=== PATIENT | female | born 1995 | race Caucasian/White ===

== ENCOUNTER 2021-09-08 15:10 | Outpatient (REF) | payer OTHER, SELFPAY ==
[2021-09-08 16:24] LABS: MANUAL DIFF FLAG NO
[2021-09-08 16:26] LABS: Basophils Absolute Auto 0.1 X10*3/uL (0.0-0.2); Basophils Percent Auto 0.5 % (0-2); Eosinophils Absolute Auto 0.1 X10*3/uL (0.0-0.4); Eosinophils Percent Auto 0.5 % (0-4); Hematocrit 41.6 % (37.0-47.0); Hemoglobin 13.7 g/dl (12.0-16.0); Imm Gran Abs Auto 0.04 X10*3/uL (0.00-0.03); Imm Gran Pct Auto 0.4 % (0.0-0.4); Lymphocytes Absolute Auto 2.3 X10*3/uL (1.2-4.9); Lymphocytes Percent Auto 22.4 % (20-40); Mean Corpuscular HGB Conc 32.9 g/dl (31.0-35.0); Mean Corpuscular Hemoglobin 30.1 pg (27.0-33.0); Mean Corpuscular Volume 91.4 fL (80.0-98.0); Mean Platelet Volume 11.2 fL (9.4-12.3); Monocytes Absolute Auto 0.6 X10*3/uL (0.1-1.2); Monocytes Percent Auto 6.3 % (2-11); Neutrophils Absolute Auto 7.1 x10*3/uL (2.0-8.3); Neutrophils Percent Auto 69.9 % (45-73); Platelet Count 276 X10*3/uL (160-400); Red Blood Count 4.55 X10*6/uL (4.20-5.50); Red Cell Distribution Width 12.8 % (11.0-16.0); White Blood Count 10.1 X10*3/uL (4.8-10.8)
[2021-09-08 16:51] LABS: Alanine Aminotransferase 13 U/L (0-31); Anion Gap 15 (12-20); Aspartate Amino Transferase 16 U/L (5-31); Blood Urea Nitrogen 9 mg/dL (9-16); Carbon Dioxide 23 mmol/L (22-29); Chloride 106 mmol/L (96-108); Cholesterol 269 mg/dL; Estimated Glomerular Filt Rate > 60; Glucose Fasting 81 mg/dL (60-99); HDL Cholesterol 52 mg/dL; LDL Cholesterol Calculated 197 mg/dl; Potassium 3.8 mmol/L (3.3-5.1); Sodium 140 mmol/L (135-145); Triglycerides 104 mg/dL
[2021-09-08 17:14] LABS: TSH reflex Free T4 1.18 uIU/mL (0.32-4.0); Vitamin D 25-OH Total 11.8 ng/mL (>30)
== END 2021-09-08 15:11 | disposition home or self-care (01) ==
LOC: HO.HMGCLDS 15:10
PROVIDERS: PCP Internal Medicine; Visit Provider Internal Medicine
DX: Z00.01 Encounter for general adult medical examination with abnormal findings (principal); I10 Essential (primary) hypertension; R42 Dizziness and giddiness; L71.9 Rosacea, unspecified
CPT/HCPCS: 36415; 80048; 80061; 82306; 84443; 84450; 84460; 85025

== ENCOUNTER 2021-09-29 12:04 | Outpatient (REF) | payer OTHER, SELFPAY ==
[2021-09-29 16:09] LABS: COVID-19 Test Negative (Negative); IDNOW Serial# 16C4AD1C
== END 2021-09-29 12:05 | disposition home or self-care (01) ==
LOC: HO.LAB 12:04
PROVIDERS: Visit Provider Internal Medicine
DX: Z20.822 Contact with and (suspected) exposure to COVID-19 (principal)
CPT/HCPCS: 36415; 87635; C9803

== ENCOUNTER 2021-10-20 08:19 | Outpatient (REF) | payer OTHER, SELFPAY ==
[2021-10-20 09:01] LABS: COVID-19 Test Negative (Negative); IDNOW Serial# 16C4AD1C
== END 2021-10-20 08:20 | disposition home or self-care (01) ==
LOC: HO.LAB 08:19
PROVIDERS: Visit Provider Internal Medicine
DX: Z20.822 Contact with and (suspected) exposure to COVID-19 (principal)
CPT/HCPCS: 87635; C9803

== ENCOUNTER 2022-05-19 14:18 | Outpatient (REF) | payer OTHER, SELFPAY ==
--- NOTE | ~2022-05-19 | MM_ITS ---
EXAMINATION: MM DIAGNOSTIC DIGITAL BREAST TOMOSYNTHESIS, BILATERAL US DIAGNOSTIC ULTRASOUND BREAST, RIGHT CLINICAL INFORMATION: 27-year-old with palpable fullness for approximately 6 months right breast. No discharge. Family history premenopausal breast cancer, mother at age 45. No BRCA testing. The lifetime risk of breast cancer based on the Tyrer-Cuzick Model is 27%. COMPARISON: None (current study represents initial baseline exam). TECHNIQUE: Digital breast tomosynthesis is performed in both the craniocaudal and mediolateral oblique views along with computer-aided detection (CAD). Synthesized 2D images are generated from the tomosynthesis. Additional right MLO view is provided. Ultrasound right breast is targeted to the areas of clinical concern upper outer breast. Grayscale imaging and color Doppler are performed without and with harmonics. FINDINGS: The breasts are heterogeneously dense, which may obscure small masses (ACR BI-RADS breast composition Category c). Breast tissue composition borders on average fibroglandular. There is no mass or architectural abnormality. No abnormal calcifications. The axilla are unremarkable. The skin contours are smooth. There is mild asymmetry of the breast, right slightly larger. Ultrasound right breast demonstrates no cystic or solid mass, architectural abnormality, or focal duct ectasia. No skin thickening or edema tracking in soft tissue planes. Results are discussed with the patient at time of visit. Management options for the palpable concern and availability of genetic testing were also discussed. MM/MM tomosynthesis diagnostic BI IMPRESSION: -No mammographic evidence of malignancy. -Unremarkable right breast ultrasound. ASSESSMENT: BI-RADS 2: Benign RECOMMENDATION: 1. Patient should be managed based on the clinical impression. If clinically indicated, further evaluation may be considered with surgical consult and/or genetic testing. Decision to proceed with biopsy should be based on clinical grounds and degree of clinical concern. 2. Otherwise, routine annual screening mammography, beginning age 35, or earlier as clinical risk factors warrant. This patient's information was entered into a reminder system with a target due date for their next mammogram.
== END 2022-05-19 14:19 | disposition home or self-care (01) ==
LOC: HO.MAMMO 14:18
PROVIDERS: Visit Provider Family Medicine
DX: N60.01 Solitary cyst of right breast (principal); Z80.3 Family history of malignant neoplasm of breast
CPT/HCPCS: 76642; 77062; 77066

== ENCOUNTER 2024-01-19 13:20 | Outpatient (AMB) | payer OTHER, SELFPAY ==
--- NOTE | 2024-01-19 13:27 | A.OFFPC_ITS ---
Vital Signs 01/19/24 13:28 Height 5 ft 4 in Weight 123 lb BMI 21.1 BP 118/66 Blood Pressure Location Lt brachial Position Sitting Pulse 67 Pulse Source Pulse Oximeter Pulse Oximetry (%) 99 Oxygen Delivery Method Room Air Intake Visit Reasons: RIGO from [place] Intake Note: Patient is transferring care from Dr. Gonzalez. Allergies amoxicillin [AMOXICILLIN] Allergy (Mild, Verified 01/19/24 13:56) RASH, breaks out was told whe she was a baby Medication List - Last Reconciled 01/19/24 by Tari Ervin, [facility]- cholecalciferol (vitamin D3) 1,250 mcg PO QWEEK 90 days Tobacco use date assessed: 01/19/24 Dental Screening Dental Screen Date: 01/19/24 Did you have a dental visit in the last 12 months?: Yes Did you have a dental problem in the last 6 months where you did not have access to dental care?: No Was dental information given to patient?: Patient has dentist HPI HPI Comments History of Present Illness Details 29-year-old female with vitamin-D defici ency hyperlipidemia, rosacea, family history of breast cancer, anemia due to dysfunctional uterine bleeding requiring blood transfusions, orthostatic hypotension Health Maintenance: Pap Mammo - Dx mammo and 2021 WNL Specialists: Here today for hospital discharge follow up. Reports that she had a syncopal episode last week. Reports that she was out to dinner with her mom at [facility]. She stood at the table to ask her mom where the bathroom was and the next thing that she knew she was lying on the floor. She states that she fell and hit her face on the floor. She reports being unconscious for several minutes. When she awoke she was very sweaty. States her mom thinks that maybe she had seizure-like activity. No urinary incontinence. Her mom was able to transport her to [facility] Emergency room where she was evaluated. Unfortunately this paperwork is not available to me today. Reports that she had 2 EKGs, labs, and CT of head and neck that were all within normal limits. I have asked my staff to obtain these records. She states that she has had a history of syncope and collapse. The last time about 4 years ago. Reports that she was symptomatic prior to this episode 4 years ago. She fell really warm and flushed, felt her heart rate rise, and knew that she was going to faint. While she attempted to sit down she syncopized. She did end up with a laceration to her chin that needed repair. States that she has only been to the emergency room and has never been seen or followed by a specialist for this. But does have a diagnosis of vasovagal syncope. Has tried wearing Gerber stockings in the past but feels like she has not gotten any that have been the right compression. Eats a high sodium diet. Has not been worked up procedures as far as she knows. 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 1. Little interest or pleasure in doing things: not at all 2. Feeling down, depressed, or hopeless: not at all 3. Trouble falling or staying asleep, or sleeping too much: not at all 4. Feeling tired or having little energy: not at all 5. Poor appetite or overeating: not at all 6. Feeling bad about yourself - or that you are a failure or have let yourself or your family down: not at all 7. Trouble concentrating on things, such as reading the newspaper or watching television: not at all 8. Moving or speaking so slowly that other people could have noticed. Or the opposite - being so fidgety or restless that you have been moving around a lot more than usual: not at all 9. Thoughts that you would be better off or of hurting yourself in some way: not at all Total score: 0 Depression Screening Interpretation: Negative Depression Screening Done: Yes 04052 - PHQ-9 Billing: Yes Source: Developed by Drs. Micah Pepe, Bert Taylor and colleagues, with an educational parth from [employer]. Thrive Questionnaire Date Thrive assessed: 01/19/24 I am a: Patient What is your living situation today?: I have a steady place to live Within the past 12 months, did the food you bought not last and you didn't have the money to get more?: Never true Within the past 12 months, did you worry whether your food would run out before you got money to buy more?: Never true Do you have trouble paying for medicines?: No Do you have trouble getting transportation to medical appointments?: No Do you have trouble paying your heating and electricity bill?: No Do you have trouble taking care of your child, family member or friend?: No Do you have trouble with day-to-day activities such as bathing, preparing meals, shopping, managing finances, etc.?: No Are you currently unemployed and looking for a job?: No Are you interested in more education?: Yes THRIVE Score: 0 AUDIT C Alcohol Use Questionnaire (AUDIT-C) 1. How often do you have a drink containing alcohol?: Monthly or less 2. How many drinks containing alcohol do you have on a typical day when you are drinking?: 1 or 2 3. How often do you have six or more drinks on one occasion?: Never Total Score: 1 Score Reviewed/Action Taken: Yes VIDAL-7 AMB Questionnaire VIDAL-7 Date VIDAL - 7 assessed: 01/19/24 Feeling nervous, anxious, or on edge: 0 = Not at all Not being able to stop or control worryin = Several days Worrying too much about different things: 0 = Not at all Trouble relaxin = Several days Being so restless that it is hard to sit still: 0 = Not at all Becoming easily annoyed or irritable: 3 = Nearly every day Feeling afraid as if something awful might happen: 1 = Several days Total VIDAL-7 score (0-4 normal; 5-9 mild; 10-14 moderate; 15-21 severe): 6 Source: Developed by Shannan Taylor Kurt Kroenke and colleagues, with an educational parth from [employer]. VIDAL-7 Assessment Billing VIDAL-7 Assessment Tool: VIDAL-7 Assessment 98432 Review of Systems Const All systems reviewed & are unremarkable except as noted in HPI and below Physical exam (Primary Care) Vital Signs: Last Vital Signs Pulse 67 01/19/24 13:28 BP 118/66 01/19/24 13:28 Pulse Ox 99 01/19/24 13:28 Oxygen Delivery Method Room Air 01/19/24 13:28 BMI result Body Mass Index 21.1 Tobacco/Smoking Status: Tobacco use Status Tobacco use date assessed 01/19/24 01/19/24 13:39 Patient Tobacco Use Status Never used Tobacco 01/19/24 13:39 e-Cigarette/Vaping Use Never Used 01/19/24 13:39 PHQ-9: PHQ-9 Score PHQ-9: Total score 0 01/19/24 13:39 Depression Screening Interpretation: Negative Thrive Assessment: Date of Thrive Assessment Date Thrive assessed 01/19/24 01/19/24 13:39 Const Other: Awake alert oriented Resolving ecchymosis to the right side of her face, laceration below nose in the right side healing without signs of infection PERRLA, EOMI Neck full range of motion Regular rate and rhythm, 3/6 systolic murmur Lung sounds clear to auscultation bilat No focal neuro deficits noted on exam Assessment and Plan Assessment & Plan (1) Hospital discharge follow-up: Code(s): Z09 - Encounter for follow-up examination after completed treatment for conditions other than malignant neoplasm Plan: Unfortunately do not have any of the [facility] workup present at the visit today. Patient reports everything was within normal limits. I have asked my staff to pull these records for me to review prior to the next visit which will be in 1 week. (2) Syncope and collapse: Comment: Reports an ongoing history dating back to at least 4 years. Reports all of her workups have been done at [facility]. I have asked my staff to pull all reports and diagnostics. Unclear of what workup she has had to date. My concern does include a seizure disorder. I will see her back next week to review with her what I find in her [facility] medical records and, with the plan of care. In the meantime I advised her to change positions slowly, wear tight compression on her lower extremities, continue to eat a high sodium diet, continue to hydrate liberally. Caution driving. Code(s): R55 - Syncope and collapse Plan This note is constructed using voice recognition software. While every effort has been made to ensure accuracy in wax ball knock out worker, still errors may have been included Sometimes, these errors may affect the content or meaning of the given sentence . Total time spent caring for the patient today was 60 minutes. This includes time spent before the visit reviewing the chart, time spent during the visit, and time spent after the visit on documentation Coding Level of Care Code Est Pt Level 5 (82898) Diagnoses Hospital discharge follow-up Z09 Syncope and collapse R55 Additional Codes VIDAL-7 Assessment Billing - VIDAL-7 Assessment Tool: VIDAL-7 Assessment 34946 ([id number])
[2024-01-19 13:28] VITALS: BP 118/66; PULSE 67; O2SAT 99; BMI 21.1
== END 2024-01-19 14:39 | disposition home or self-care (01) ==
PROVIDERS: PCP Internal Medicine; Visit Provider Nurse Practitioner Family
DX: Z09 Encounter for follow-up examination after completed treatment for conditions other than malignant neoplasm (principal); R55 Syncope and collapse
CPT/HCPCS: 99215; 99417

== ENCOUNTER 2024-01-24 11:55 | Outpatient (AMB) | payer OTHER, SELFPAY ==
--- NOTE | 2024-01-24 11:59 | MHC.PC.OV ---
Vital Signs 01/24/24 12:01 Height 5 ft 4 in Weight 126 lb BMI 21.6 BP 131/59 L Blood Pressure Location Lt brachial Position Sitting Pulse 110 H Pulse Source Pulse Oximeter Pulse Oximetry (%) 96 Oxygen Delivery Method Room Air Intake Visit Reasons: FU syncope/FMLA Intake Note: Patient in office for f/u syncope and to have FMLA paperwork filled out. Pt. reports no new concerns. 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 Reclamation Required: No Accompanied by: Self / Same As Patient Allergies amoxicillin [AMOXICILLIN] Allergy (Mild, Verified 01/24/24 12:02) RASH, breaks out was told whe she was a baby Tobacco use date assessed: 01/24/24 Dental Screening Dental Screen Date: 01/19/24 HPI HPI Comments History of Present Illness Details 29-year-old female with vitamin-D deficiency hyperlipidemia, rosacea, family history of breast cancer, anemia due to dysfunctional uterine bleeding requiring blood transfusions Surgical hx: October of 2014 suction D&C for dyssynchronous endometrium causing hemorrhage Health Maintenance: Pap Pap 01/29/2019 ascus negative HPV Mammo - Dx mammo and US 2021 WNL 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 If clinically indicated consider AL. Normal left ventricle. Ejection fraction 60-65%, trivial aortic valve regurg, trace mitral valve regurg, trace pulmonic valve regurg, trace tricuspid regurg Previous Echo 01/2015, done at [facility], [facility]. Admitted in 2014 to PICU for syncope. EKG during this admission shows signs of ischemia. EKG 01/18/2020 at [facility] was concerning for ischemic changes however unchanged from the EKG in 2014. Repeat EKG showed sinus rhythm with an incomplete right bundle. Cardiology consulted. Advised for the patient to be admitted. Referred to EP lab TSH of 5.94 with a T4 of 0.99 01/18/2020 along with a D-dimer of 0.3 Here today to follow up on syncope and collapse. Since last office visit I was able to review the notes as listed above. She has not had any further syncopal episodes. She tells me that she was not able to have the tilt-table test in 2019 as ordered. Unsure exactly of the cause but all but she was related to the pandemic. She does state that she got her period 2 days after the most recent syncopal event. She can recall that she got her period about 2 days after the last syncopal event in 2019 as well. She wonders if there is any correlation. Is having headaches and post concussive sx; along w/ neck pain. Tx with APAP. Feels like she is managing. She does need a reasonable accommodation letter for her employer to state that she has to wear stretch pants to work which is required to prevent orthostatic syncope. She also needs [place] paperwork completed. We have completed this at the time of the visit in the original paperwork was returned to her. The leave is for an intermittent leave starting 01/15/2024 extending through 07/16/2024. Intermittent abscesses include 2 episodes per week each episode lasting 1 day. 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 Micah Pepe, Shannan Jade, Bert Bahena and colleagues, with an educational parth from [employer]. Review of Systems Const All systems reviewed & are unremarkable except as noted in HPI and below Physical exam (Primary Care) Vital Signs: Last Vital Signs Pulse 110 H 01/24/24 12:01 BP 131/59 L 01/24/24 12:01 Pulse Ox 96 01/24/24 12:01 BMI result Body Mass Index 21.6 Tobacco/Smoking Status: Tobacco use Status Tobacco use date assessed 01/19/24 01/24/24 12:03 Patient Tobacco Use Status Never used Tobacco 01/24/24 12:03 e-Cigarette/Vaping Use Never Used 01/24/24 12:03 Thrive Assessment: Date of Thrive Assessment Date Thrive assessed 01/19/24 01/24/24 12:03 Const Other: Awake alert oriented Resolving ecchymosis to the right side of her face, PERRLA, EOMI Neck full range of motion Regular rate and rhythm, 3/6 systolic murmur Lung sounds clear to auscultation bilat No focal neuro deficits noted on exam Assessment and Plan Assessment & Plan (1) Syncope and collapse: Comment: Echocardiogram 07/14/2018 small nonspecific echodensity in the right coronary cusp of the aortic valve, uncertain significance. If clinically indicated consider AL. Normal left ventricle. Ejection fraction 60-65%, trivial aortic valve regurg, trace mitral valve regurg, trace pulmonic valve regurg, trace tricuspid regurg Previous Echo 01/2015, done at [facility], [facility]. Admitted in 2014 to PICU for syncope. EKG during this admission shows signs of ischemia. EKG 01/18/2020 at [facility] was concerning for ischemic changes however unchanged from the EKG in 2014. Repeat EKG showed sinus rhythm with an incomplete right bundle. Cardiology consulted. Advised for the patient to be admitted. Referred to EP lab (did not happen d/t pandemic). Plan: check EEG and Tilt table test, wear tight compression pants (note given for work), cont slow position changes. No AL at this time, will entertain after these 2 tests are back. Incidental mild elevation in D dimer in the past, will check again today. Code(s): R55 - Syncope and collapse (2) Vitamin D deficiency: Comment: check labs today Code(s): E55.9 - Vitamin D deficiency, unspecified (3) Elevated TSH: Comment: incidental finding on one of her previous work ups. I will repeat labs + TPO today. Code(s): R79.89 - Other specified abnormal findings of blood chemistry (4) Post concussion syndrome: Comment: supportive care; education provided. Code(s): F07.81 - Postconcussional syndrome Plan This note is constructed using voice recognition software. While every effort has been made to ensure accuracy in inner diameter grinder tool, still errors may have been included Sometimes, these errors may affect the content or meaning of the given sentence . Total time spent caring for the patient today was 60 minutes. This includes time spent before the visit reviewing the chart, time spent during the visit, and time spent after the visit on documentation Orders: Orders D Dimer High Sensitivity Today E55.9 - Vitamin D deficiency, unspecified, R55 - Syncope and collapse, R79.89 - Other specified abnormal findings of blood chemistry Vitamin D 1,25 dihydroxy Today E55.9 - Vitamin D deficiency, unspecified EEG electroencephalogram Today R55 - Syncope and collapse ECG Tilt Table Test Today R55 - Syncope and collapse TSH reflex Free T4 Today E55.9 - Vitamin D deficiency, unspecified, R55 - Syncope and collapse, R79.89 - Other specified abnormal findings of blood chemistry Thyroid Peroxidase Antibodies Today E55.9 - Vitamin D deficiency, unspecified, R55 - Syncope and collapse, R79.89 - Other specified abnormal findings of blood chemistry Patient Instructions: RTO IN 6 WEEKS TO F/U ON TILT TABLE, EEG, SYNCOPE AND COLLAPSE. SOONER PRN Coding Level of Care Code Est Pt Level 5 (40987) Diagnoses Syncope and collapse R55 Vitamin D deficiency E55.9 Elevated TSH R79.89 Post concussion syndrome F07.81
[2024-01-24 12:01] VITALS: BP 131/59; PULSE 110; O2SAT 96; BMI 21.6
== END 2024-01-24 12:44 | disposition home or self-care (01) ==
PROVIDERS: PCP Nurse Practitioner Family; Visit Provider Nurse Practitioner Family
DX: R55 Syncope and collapse (principal); E55.9 Vitamin D deficiency, unspecified; R79.89 Other specified abnormal findings of blood chemistry; F07.81 Postconcussional syndrome
CPT/HCPCS: 99215; 99417

== ENCOUNTER 2024-01-24 12:38 | Outpatient (REF) | payer OTHER, SELFPAY ==
[2024-01-24 15:22] LABS: D Dimer High Sensitivity < 150 NG/ML
[2024-01-24 16:39] LABS: TSH reflex Free T4 1.54 uIU/mL (0.32-4.0)
[2024-01-25 11:33] LABS: Thyroid Peroxidase Antibodies <1 IU/mL (<9)
[2024-01-28 13:38] LABS: VITAMIN D (1,25 OH) D3 38 pg/mL; Vit D (1,25-Dihydroxy) Total 38 pg/mL (18-72); Vitamin D (1,25 OH) D2 <8 pg/mL
== END 2024-01-24 12:39 | disposition home or self-care (01) ==
LOC: HO.WFDLDS 12:38
PROVIDERS: Visit Provider Nurse Practitioner Family
DX: R55 Syncope and collapse (principal); E55.9 Vitamin D deficiency, unspecified; R94.6 Abnormal results of thyroid function studies
CPT/HCPCS: 36415; 82652; 84443; 85379; 86376

== ENCOUNTER 2024-03-06 08:31 | Outpatient (AMB) | payer OTHER, SELFPAY ==
[2024-03-06 08:36] VITALS: BP 112/64; PULSE 78; RESP 13; TEMP 36.4; O2SAT 99; BMI 22.2
--- NOTE | 2024-03-06 08:36 | MHC.PC.OV ---
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 Operator Required: No Accompanied by: Self / Same As Patient Allergies amoxicillin [AMOXICILLIN] Allergy (Mild, Verified 03/06/24 08:53) RASH, breaks out was told whe she was a baby Medication List - Last Reconciled 03/06/24 by Tari Ervin, [facility]- cholecalciferol (vitamin D3) 1,250 mcg PO QWEEK 90 days Tobacco use date assessed: 01/24/24 Dental Screening Dental Screen Date: 01/19/24 HPI HPI Comments History of Present Illness Details 29-year-old female with vitamin-D deficiency hyperlipidemia, rosacea, family history of breast cancer, anemia due to dysfunctional uterine bleeding requiring blood transfusions Surgical hx: October of 2014 suction D&C for dyssynchronous endometrium causing hemorrhage Health Maintenance: Pap Pap 01/29/2019 ascus negative HPV Mammo - Dx mammo and US 2021 WNL 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 If clinically indicated consider AL. Normal left ventricle. Ejection fraction 60-65%, trivial aortic valve regurg, trace mitral valve regurg, trace pulmonic valve regurg, trace tricuspid regurg Previous Echo 01/2015, done at [facility], WNL. Admitted in 2014 to PICU for syncope. EKG during this admission shows signs of ischemia. EKG 01/18/2020 at [facility] was concerning for ischemic changes however unchanged from the EKG in 2014. Repeat EKG showed sinus rhythm with an incomplete right bundle. Cardiology consulted. Advised for the patient to be admitted. Referred to EP lab 01/2024 D Dimer negative, TSH WNL, TPO AB negative, Vit D WNL Here today to f/u on Syncope and collapse. Since last visit, did complete tilt table test at [facility], reports + sx after admin of nitro. I do not have these results, i have requested. Has been using gatorade and electrolyte solution, wearing compression leggings. Yesterday was first day she did not feel well. Menses are coming. Legs feel tight. admits anxiety around times of menses as this is when sx usually occur. 02/08/2024 Awake EEG WNL Left achilles is painful, thinks she overstretched this started this morning. Plan will be: Discussed echo results >> AL vs Echo VS Cards consults VS nothing -- plan will be to review health insurance benefits and discuss w/ family & get back to me on portal w/ decision. Use Na tabs over the counter 3L and 3g salt /day Start escitalopram Use NSAid and gentle exercises Keep diary and log of muscle aches and pains. See appearing in determine any correlation. [facility] Medical History Orthostatic hypotension Vasovagal syncope Vitamin D deficiency Familial hypercholesterolemia Rosacea Positional lightheadedness Surgical History No pertinent past surgical history Social History Household Members: Family Both parents involved: No Caregiver staying overnight: No Housing: House Are you a primary manager medicare marketing to a significant other at home: No Do you presently have visiting nurse or other home services: No 75 years or older and lives alone: No Alcohol intake: current Alcohol intake frequency: holidays/special occasions only Alcohol type: other Patient Tobacco Use Status: Never used Tobacco e-Cigarette/Vaping Use: Never Used service: No Current occupational status: employed 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 Micah Pepe, Shannan Jade, Bert Bahena and colleagues, with an educational parth from [employer]. Review of Systems Const All systems reviewed & are unremarkable except as noted in HPI and below Physical exam (Primary Care) Vital Signs: Last Vital Signs Temp 97.6 F 03/06/24 08:36 Pulse 78 03/06/24 08:36 Resp 13 03/06/24 08:36 BP 112/64 03/06/24 08:36 Pulse Ox 99 03/06/24 08:36 Oxygen Delivery Method Room Air 03/06/24 08:36 BMI result Body Mass Index 22.2 Tobacco/Smoking Status: Tobacco use Status Tobacco use date assessed 01/24/24 03/06/24 08:43 Patient Tobacco Use Status Never used Tobacco 03/06/24 08:43 e-Cigarette/Vaping Use Never Used 03/06/24 08:43 Thrive Assessment: Date of Thrive Assessment Date Thrive assessed 01/19/24 03/06/24 08:43 Const Other: Awake alert oriented PERRLA, EOMI Neck full range of motion Regular rate and rhythm, 3/6 systolic murmur Lung sounds clear to auscultation bilat No focal neuro deficits noted on exam No edema bilateral lower extremities, pain over left Achilles with range of motion passive and active in all direction and with palpation, no edema no ecchymosis no erythema. Mild antalgic gait favoring the left side Assessment and Plan Assessment & Plan (1) Syncope and collapse: Comment: Echocardiogram 07/14/2018 small nonspecific echodensity in the right coronary cusp of the aortic valve, uncertain significance. If clinically indicated consider AL. Normal left ventricle. Ejection fraction 60-65%, trivial aortic valve regurg, trace mitral valve regurg, trace pulmonic valve regurg, trace tricuspid regurg Previous Echo 01/2015, done at [facility], [facility]. Admitted in 2014 to PICU for syncope. EKG during this admission shows signs of ischemia. EKG 01/18/2020 at [facility] was concerning for ischemic changes however unchanged from the EKG in 2014. Repeat EKG showed sinus rhythm with an incomplete right bundle. Cardiology consulted. Advised for the patient to be admitted. Referred to EP lab (did not happen d/t pandemic). Plan:02/08/24 EEG awake normal Tilt table test pending results, reports positive symptoms. Continue to wear tight compression pants (note given for work), cont slow position changes. Use vkwb-ddq-[id number] sodium chloride tabs. Max of 3 g per day. Drink 3 L of fluid per day. Consider transthoracic versus transesophageal echocardiogram versus referral to Cardiology versus nothing. Let me know at next appointment. Code(s): R55 - Syncope and collapse (2) Vitamin D deficiency: Comment: 01/27/2024 vitamin-D within normal limits. This is on a supplement. Continue as directed. Code(s): E55.9 - Vitamin D deficiency, unspecified (3) Generalized anxiety disorder: Comment: Trialed Celexa and or Zoloft in the past which caused GI upset. The plan will be to start escitalopram 5 mg p.o. daily. Return to office in 6 weeks to follow up on effect. Code(s): F41.1 - Generalized anxiety disorder (4) Strain of left Achilles tendon: Comment: Supportive care. Code(s): S86.012A - Strain of left Achilles tendon, initial encounter Qualifiers: Encounter type: initial encounter Qualified Code(s): S86.012A - Strain of left Achilles tendon, initial encounter Plan This note is constructed using voice recognition software. While every effort has been made to ensure accuracy in clinical care coordinator, still errors may have been included Sometimes, these errors may affect the content or meaning of the given sentence . Total time spent caring for the patient today was 45 minutes. This includes time spent before the visit reviewing the chart, time spent during the visit, and time spent after the visit on documentation Medications: New escitalopram oxalate 5 mg PO DAILY 30 tabs 1RF Patient Instructions: Sodium Chloride Tablets 1 gm, GROUP HOME Normal Salt Tablets - 300 Tablets (1 Pack of 300 Tablets) by [employer]. --> [employer] can take salt tabs 3 times per day; drink 3 L of fluid Take lexapro 5 mg one tab once per day; fu with me in 6 weeks Discuss Echocardiogram fu and let me know via portal or at next appt Keep diary about muscle fatigue -- ?? any correlations. Stretch achilles -- use internet for exercises RTO 6 weeks Coding Level of Care Code Est Pt Level 5 (61555) Diagnoses Syncope and collapse R55 Vitamin D deficiency E55.9 Generalized anxiety disorder F41.1 Strain of left Achilles tendon, initial encounter S86.012A Encounter type: initial encounter
== END 2024-03-06 09:20 | disposition home or self-care (01) ==
PROVIDERS: PCP Nurse Practitioner Family; Visit Provider Nurse Practitioner Family
DX: R55 Syncope and collapse (principal); E55.9 Vitamin D deficiency, unspecified; F41.1 Generalized anxiety disorder; S86.012A Strain of left Achilles tendon, initial encounter
CPT/HCPCS: 99215

== ENCOUNTER 2024-04-17 08:29 | Outpatient (AMB) | payer OTHER, SELFPAY ==
--- NOTE | 2024-04-17 08:31 | MHC.PC.OV ---
Vital Signs 04/17/24 08:34 Weight 129 lb 8 oz BP 120/62 Blood Pressure Location Rt brachial Position Sitting Pulse 78 Pulse Source Pulse Oximeter Temp 97.7 F Temp Source Temporal Artery Scan Pulse Oximetry (%) 100 Oxygen Delivery Method Room Air Intake Visit Reasons: fu lexapro start, ? Echo Intake Note: patient here follow up. 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 Required: No Is last menstrual period known: Yes Last menstrual period: 04/10/24 Post menopausal: No Patient : No Allergies amoxicillin [AMOXICILLIN] Allergy (Mild, Verified 03/06/24 08:53) RASH, breaks out was told whe she was a baby Medication List - Last Reconciled 04/17/24 by Tari Ervin, [employer]- cholecalciferol (vitamin D3) 1,250 mcg PO QWEEK 90 days escitalopram oxalate 5 mg PO DAILY Tobacco use date assessed: 01/24/24 Dental Screening Dental Screen Date: 01/19/24 HPI HPI Comments History of Present Illness Details 29-year-old female with vitamin-D deficiency hyperlipidemia, rosacea, family history of breast cancer, anemia due to dysfunctional uterine bleeding requiring blood transfusions, orthostatic hypotension Surgical hx: October of 2014 suction D&C for dyssynchronous endometrium causing hemorrhage Health Maintenance: Pap Pap 01/29/2019 ascus negative HPV Mammo - Dx mammo and US 2021 WNL 02/08/2024 Awake EEG WNL Tilt table 2023 + @ [facility] 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 If clinically indicated consider AL. Normal left ventricle. Ejection fraction 60-65%, trivial aortic valve regurg, trace mitral valve regurg, trace pulmonic valve regurg, trace tricuspid regurg Previous Echo 01/2015, done at [facility], WNL. Admitted in 2014 to PICU for syncope. EKG during this admission shows signs of ischemia. EKG 01/18/2020 at [facility] was concerning for ischemic changes however unchanged from the EKG in 2014. Repeat EKG showed sinus rhythm with an incomplete right bundle. Cardiology consulted. Advised for the patient to be admitted. Referred to EP lab 01/2024 D Dimer negative, TSH WNL, TPO AB negative, Vit D WNL Here today for a 6 week follow up of chronic conditions. Since last office visit she was prescribed escitalopram 5 mg. However she decided not to take it. She feels like she has been managing her generalized anxiety without medications. Overall she feels less anxious about the syncope. She had her menses 1 week ago and did not have any recurrent symptoms. She has been using the sodium chloride tablets in the morning with great effects, she continues to wear compression at work. In regards to the muscle ache she did start journaling when she started the sodium tablets a few weeks ago. Was not able to find any correlation. Admits the muscle aches have not been as bad. She was able to hike in [place] this weekend while she had her period and felt completely fine. She does endorse some pain in her feet and legs at the end of the day. Notices increased veins in her feet at the end of the day which can be red at times. Has pictures on her phone for me which were reviewed today. No redness noted in the pictures. In fact picture is normal. In regards to echo wishes to proceed with AL. We will have her get it done at [facility] for continuity of care as she has had her last 3 echocardiogram done there. She also has a wart to her left thumb. Plan: AL @ [facility] OT wart remover for L thumb Cont Na+, compression and increased hydration DC escitalopram. If you change your mind about meds, let me know. RTO in a few weeks to discuss AL results, sooner PRN This note is constructed using voice recognition software. While every effort has been made to ensure accuracy in chief engineer waterworks, still errors may have been included Sometimes, these errors may affect the content or meaning of the given sentence . Total time spent caring for the patient today was 40 minutes. This includes time spent before the visit reviewing the chart, time spent during the visit, and time spent after the visit on documentation [facility] Medical History (Updated 04/17/24 @ 09:10 by SANGITA Walker) Orthostatic hypotension Vasovagal syncope Vitamin D deficiency Familial hypercholesterolemia Rosacea Positional lightheadedness Surgical History No pertinent past surgical history Social History Household Members: Family Both parents involved: No Caregiver staying overnight: No Housing: House Are you a primary critical care unit manager to a significant other at home: No Do you presently have visiting nurse or other home services: No 75 years or older and lives alone: No Alcohol intake: current Alcohol intake frequency: holidays/special occasions only Alcohol type: other Patient Tobacco Use Status: Never used Tobacco e-Cigarette/Vaping Use: Never Used Patient : No service: No Current occupational status: employed 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 Micah Pepe, Shannan Jade, Bert Bahena and colleagues, with an educational parth from [employer]. Physical exam (Primary Care) Vital Signs: Last Vital Signs Temp 97.7 F 04/17/24 08:34 Pulse 78 04/17/24 08:34 BP 120/62 04/17/24 08:34 Pulse Ox 100 04/17/24 08:34 Oxygen Delivery Method Room Air 04/17/24 08:34 Tobacco/Smoking Status: Tobacco use Status Tobacco use date assessed 01/24/24 04/17/24 08:33 Patient Tobacco Use Status Never used Tobacco 04/17/24 08:33 e-Cigarette/Vaping Use Never Used 04/17/24 08:33 Thrive Assessment: Date of Thrive Assessment Date Thrive assessed 01/19/24 04/17/24 08:33 Const Other: Awake alert oriented PERRLA, EOMI Neck full range of motion Regular rate and rhythm, 3/6 systolic murmur Lung sounds clear to auscultation bilat No focal neuro deficits noted on exam No edema bilateral lower extremities Assessment and Plan Assessment & Plan (1) Generalized anxiety disorder: Comment: Trialed Celexa and or Zoloft in the past which caused GI upset. Code(s): F41.1 - Generalized anxiety disorder (2) Syncope and collapse: Comment: Echocardiogram 07/14/2018 small nonspecific echodensity in the right coronary cusp of the aortic valve, uncertain significance. If clinically indicated consider AL. Normal left ventricle. Ejection fraction 60-65%, trivial aortic valve regurg, trace mitral valve regurg, trace pulmonic valve regurg, trace tricuspid regurg Previous Echo 01/2015, done at [facility], WN. Admitted in 2014 to PICU for syncope. EKG during this admission shows signs of ischemia. EKG 01/18/2020 at [facility] was concerning for ischemic changes however unchanged from the EKG in 2014. Repeat EKG showed sinus rhythm with an incomplete right bundle. Cardiology consulted. Advised for the patient to be admitted. Referred to EP lab (did not happen d/t pandemic). Plan:02/08/24 EEG awake normal Tilt table test + Continue to wear tight compression pants (note given for work), cont slow position changes. Use zpvr-zbg-ximeijg sodium chloride tabs. Max of 3 g per day. Drink 3 L of fluid per day. Check AL Code(s): R55 - Syncope and collapse (3) Vasovagal syncope: Code(s): R55 - Syncope and collapse (4) Viral wart on left thumb: Code(s): B07.9 - Viral wart, unspecified Orders: Orders CA echo transesophageal Today R55 - Syncope and collapse, R93.1 - Abnormal findings on diagnostic imaging of heart and coronary circulation Medications: Discontinued escitalopram oxalate Discontinued Reason: Patient Refused 5 mg PO DAILY 30 tabs 1RF Coding Level of Care Code Est Pt Level 5 (99206) Complex EM visit Add On G2211 Diagnoses Generalized anxiety disorder F41.1 Syncope and collapse R55 Vasovagal syncope R55 Viral wart on left thumb B07.9
[2024-04-17 08:34] VITALS: BP 120/62; PULSE 78; TEMP 36.5; O2SAT 100
== END 2024-04-17 08:59 | disposition home or self-care (01) ==
PROVIDERS: PCP Nurse Practitioner Family; Visit Provider Nurse Practitioner Family
DX: F41.1 Generalized anxiety disorder (principal); R55 Syncope and collapse; B07.9 Viral wart, unspecified
CPT/HCPCS: 99215

== ENCOUNTER 2024-07-16 16:44 | Outpatient (AMB) | payer OTHER, SELFPAY ==
--- NOTE | 2024-07-16 16:44 | A.OFFPC_ITS ---
Intake Visit Reasons: fmla paperwork Allergies amoxicillin [AMOXICILLIN] Allergy (Mild, Verified 07/16/24 17:20) RASH, breaks out was told whe she was a baby Medication List - Last Reconciled 07/16/24 by SANGITA Walker cholecalciferol (vitamin D3) 1,250 mcg PO QWEEK 90 days Tobacco use date assessed: 01/24/24 Dental Screening Dental Screen Date: 01/19/24 HPI HPI Comments History of Present Illness Details 29-year-old female with vitamin-D defici ency hyperlipidemia, rosacea, family history of breast cancer, anemia due to dysfunctional uterine bleeding requiring blood transfusions, vasovagal syncope (dx + tilt table 01/2024 at [facility]) Telehealth visit today for recert of FMLA. At this time, she has a reasonable accommodation letter for her employer to state that she has to wear stretch pants to work which is required to prevent orthostatic syncope - Active. She is currently on intermittent leave starting 01/15/2024 extending through 07/16/2024. Intermittent absences include 2 episodes per week each episode lasting 1 day. Given medical necessity of chronic medical condition w/ acute flare, this leave will be recertified from 07/16/24-01/14/2025 with the same conditions. This was completed at the time of the visit & she requested this info be faxed to [phone] This was done at 1720 with confirmed receipt. Copy scanned into chart. Pt should f/u as scheduled, sooner PRN This note is constructed using voice recognition software. While every effort has been made to ensure accuracy in scrum product owner, still errors may have been included Sometimes, these errors may affect the content or meaning of the given sentence . Total time spent caring for the patient today was 30 minutes. This includes time spent before the visit reviewing the chart, time spent during the visit, and time spent after the visit on documentation [facility] Medical History (Updated 04/17/24 @ 09:10 by SANGITA Walker) Orthostatic hypotension Vasovagal syncope Vitamin D deficiency Familial hypercholesterolemia Rosacea Positional lightheadedness Surgical History No pertinent past surgical history Social History Household Members: Family Both parents involved: No Caregiver staying overnight: No Housing: House Are you a primary health care / medical job titles to a significant other at home: No Do you presently have visiting nurse or other home services: No 75 years or older and lives alone: No Alcohol intake: current Alcohol intake frequency: holidays/special occasions only Alcohol type: other Patient Tobacco Use Status: Never used Tobacco e-Cigarette/Vaping Use: Never Used service: No Current occupational status: employed 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 How many drinks containing alcohol do you have on a typical day when you are drinking?: 1 or 2 3. How often do you have six or more drinks on one occasion?: Never Total Score: 0 VIDAL-7 AMB Questionnaire VIDAL-7 Date VIDAL - 7 assessed: 01/19/24 Source: Developed by Drs. Micah Pepe, Shannan Jade, Bert Bahena and colleagues, with an educational parth from [email or web address]. Physical exam (Primary Care) Tobacco/Smoking Status: Tobacco use Status Tobacco use date assessed 01/24/24 04/17/24 08:33 Patient Tobacco Use Status Never used Tobacco 04/17/24 08:33 e-Cigarette/Vaping Use Never Used 04/17/24 08:33 Thrive Assessment: Date of Thrive Assessment Date Thrive assessed 01/19/24 04/17/24 08:33 Telehealth Telehealth Telehealth Platform: Telephone Location of provider rendering services: practice address Location of patient: address on file Patient Identification confirmed using: Name, : Yes Telehealth method: voice only Patient verbally consented to treatment: Yes Patient verbally consented to billing insurance company: Yes Patient informed of any privacy concerns related to visit: Yes Minutes spent on Phone/Video with Pt.: 10 Coding Level of Care Code Tele Est Pt Level 3 (67342) Complex EM visit Add On G2211 Diagnoses Vasovagal syncope R55 Encounters for administrative purpose Z02.9 Assessment & Plan Assessment & Plan (1) Vasovagal syncope: Code(s): R55 - Syncope and collapse Category: Medical Plan: . (2) Encounters for administrative purpose: Code(s): Z02.9 - Encounter for administrative examinations, unspecified Plan: . Plan .
== END 2024-07-16 17:23 | disposition home or self-care (01) ==
LOC: HO.HMCFM 16:44
PROVIDERS: PCP Nurse Practitioner Family; Visit Provider Nurse Practitioner Family
DX: R55 Syncope and collapse (principal)

== ENCOUNTER → 2024-07-16 16:44 | Outpatient (BNVA) | payer OTHER, SELFPAY | PROVIDERS: PCP Nurse Practitioner Family; Visit Provider Nurse Practitioner Family ==

== ENCOUNTER 2024-10-03 10:48 | Outpatient (AMB) | payer OTHER, SELFPAY ==
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
[2024-10-03 11:08] VITALS: BP 132/70; PULSE 77; RESP 13; O2SAT 98; BMI 22.7
== END 2024-10-03 12:13 | disposition home or self-care (01) ==
PROVIDERS: PCP Nurse Practitioner Family; Visit Provider Physician Assistant Medical
DX: M54.2 Cervicalgia (principal); M54.9 Dorsalgia, unspecified; M25.512 Pain in left shoulder; V89.2XXA Person injured in unspecified motor-vehicle accident, traffic, initial encounter

== ENCOUNTER → 2024-10-03 10:48 | Outpatient (BNVA) | payer OTHER, SELFPAY | PROVIDERS: PCP Nurse Practitioner Family; Visit Provider Physician Assistant Medical ==

== ENCOUNTER 2024-10-03 12:17 | Outpatient (REF) | payer OTHER, SELFPAY ==
[2024-10-03 14:40] LABS: Hematocrit 40.6 % (37.0-47.0); Hemoglobin 13.6 g/dl (12.0-16.0); Mean Corpuscular HGB Conc 33.5 g/dl (31.0-35.0); Mean Corpuscular Hemoglobin 29.8 pg (27.0-33.0); Mean Platelet Volume 12.1 fL (9.4-12.3); Platelet Count 256 X10*3/uL (160-400); Red Blood Count 4.56 X10*6/uL (4.20-5.50); Red Cell Distribution Width 12.7 % (11.0-16.0); White Blood Count 7.7 X10*3/uL (4.8-10.8)
[2024-10-03 14:54] LABS: Anion Gap 14 (12-20); Blood Urea Nitrogen 11 mg/dL (9-16); Calcium 9.7 mg/dL (8.4-10.2); Carbon Dioxide 25 mmol/L (22-29); Chloride 106 mmol/L (96-108); Estimated Glomerular Filt Rate > 60; Glucose Random 93 mg/dL (60-115); Potassium 3.7 mmol/L (3.3-5.1); Sodium 141 mmol/L (135-145)
[2024-10-03 15:12] LABS: TSH reflex Free T4 1.56 uIU/mL (0.32-4.0)
[2024-10-03 18:12] LABS: Appearance Urine Turbid; Color Urine Orange; Glucose Urine UA Negative (Negative); Leukocyte Esterase Urine Small (1+) (Negative); Nitrite Urine Negative (Negative); PH 5.5 (5.0-9.0); Specific Gravity - Urine 1.025 (1.005-1.025); UMIC TRIGGER UA YES; Urine Blood Large (3+) (Negative); Urine Ketones Negative (Negative); Urine Protein 100 (2+) mg/dL (Neg-Trace)
[2024-10-03 18:23] LABS: Bacteria Urine 1+ (None Seen); Hyaline Casts Urine 0-2 /LPF (0-2); RBC Urine >20 /HPF (0-2); Squamous Epithelial Cell Urine 0-2 /HPF (0-2); WBC Urine 21-50 /HPF (0-5)
[2024-10-04 08:14] LABS: HIV AB/AG Nonreactive (Nonreactive); HIV Num 1 0.05 S/CO (0.00-0.99)
== END 2024-10-03 12:18 | disposition home or self-care (01) ==
LOC: HO.WFDLDS 12:17
PROVIDERS: Visit Provider Physician Assistant Medical
DX: R53.83 Other fatigue (principal); N39.0 Urinary tract infection, site not specified; M54.2 Cervicalgia; M54.9 Dorsalgia, unspecified; M25.512 Pain in left shoulder; R39.9 Unspecified symptoms and signs involving the genitourinary system; Z20.2 Contact with and (suspected) exposure to infections with a predominantly sexual mode of transmission
CPT/HCPCS: 36415; 80048; 81001; 84443; 85027; 87086; 87389; 96127

== ENCOUNTER 2024-10-21 09:35 | Outpatient (AMB) | payer OTHER, SELFPAY ==
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
[2024-10-21 09:40] VITALS: BP 124/72; PULSE 94; RESP 12; O2SAT 99; BMI 22.7
--- OUTSIDE RECORDS SUMMARY | 2024-10-21 10:29 | XMS_ITS | Data Portability ---
Author Organization [facility], [address] Address [address] [place] [address] Care Team Providers Care Company Doctor Name Role Phone WINSTON FIELDS Primary Care Provider [phone] Assessment No assessment recorded. Plan of Treatment Reminders Order Date Submit Date Provider Last Modified By Organization Details Last Modified Time Details Appointments None recorded. Lab None recorded. Referral None recorded. Procedures None recorded. Surgeries None recorded. Imaging None recorded. Medication Orders Allergy Eye (ketotifen) 0.025 % (0.035 %) drops 2022 023 NATHAN [id number], [address] [place], [place], [id number], 3 14:23:41 doxycycline hyclate 100 mg capsule 2022 023 [id number], [address] [place], [place], [id number], 3 13:54:14 Patient TargetsNo targets recorded. Patient Instructions Encounter Date Encounter Id Patient Instructions Last Modified By Organization Details Last Modified Time 01/09/2023 [id number] .all [email or web address] Not available 01/09 09:40:52 Use prescribed antibiotic eye drops or ointment as directed to treat the infection. Apply a warm compress (towel soaked in warm water) to the affected eye 3 to 4 times a day. Do this just before applying medicine to the eye. Use a warm, wet cloth to wipe away crusting of the eyelids in the morning. This is caused by mucus drainage during the night. You may also use saline irrigating solution or artificial tears to rinse away mucus in the eye. Do not put a patch over the eye. Wash your hands before and after touching the infected eye. This is to prevent spreading the infection to the other eye, and to other people. Don't share your towels or washcloths with others. You may use acetaminophen or ibuprofen to control pain, unless another medicine was prescribed. Talk with your healthcare provider before using these medicines if you have chronic liver or kidney disease. Also talk with your provider if you have ever had a stomach ulcer or digestive bleeding. Don't wear contact lenses until your eyes have healed and all symptoms are gone. Follow-up care Follow up with your healthcare provider, or as advised. When to seek medical advice Call your healthcare provider right away if any of these occur: Worsening vision Increasing pain in the eye Increasing swelling or redness of the eyelid Redness spreading around the eye [email or web address] Not available 01/09/2023 09:40:36 Reason for Referral None Reported. Problems No Known Problems Procedures Surgical History Date Name Laterality Status Provider Name and Address Organization Details Recorded Time 04/03/2023 Tick Bite completed Mickey Browne MD [address] [place] [address] [place], [address], [place] [facility] 04/03/2023 14:43:47 Imaging Results None recorded. Procedure Notes None recorded. Medical Equipment None Reported. Allergies Allergen ID Allergen Name Allergen Category Reaction Reaction Severity Criticality Documentation Date Start Date Code Code System Note Provider Name and Address Organization Details Recorded Time 051972 amoxicill in medicatio n hives Not available Not available 01/09/2023 723 RxNorm Juliet cerna PA - [facility] 3 09:12:22 Medications Name Sig Start Date Stop Date Status Note LastModified by Organization Details LastModified Time doxycycline hyclate 100 mg capsule Take 2 capsules every day by oral route for 1 day. 2022 active Not Available Not Available Not Avai lable Vitals Date Recorded Body height Body mass index (BMI) Body weight Oxygen saturation Oxygen saturation in Arterial blood by Pulse oximetry Heart rate Respiratory rate Body temperature Systolic blood pressure Diastolic blood pressure Provider Name and Address Organization Details Last Updated DateTime 3 162.56 cm 22.3 kg/m2 22774.0 1 g 99 % 99 % 79 /min 18 /min 98.4 [degF] 115 mm[Hg] 77 mm[Hg] Juliet [facility] 3 09:15:27 Date Recorded Body height Body mass index (BMI) Body weight Body temperature Respiratory rate Heart rate Oxygen saturation Oxygen saturation in Arterial blood by Pulse oximetry Systolic blood pressure Diastolic blood pressure Provider Name and Address Organization Details Last Updated DateTime 3 162.56 cm 22.3 kg/m2 78557.0 1 g 97.8 [degF] 18 /min 78 /min 100 % 100 % 143 mm[Hg] 68 mm[Hg] MASSIMO Rodriguez [facility] 13:19:13 Social History Question Answer Notes LastModified by [employer] ion Details LastModified Time Tobacco Smoking Status Never Smoker Juliet cerna [facility] 01/09/2023 09:13:09 What Is Your Level Of Alcohol Consumption? Occasional Information not available 01/09/2023 How Many Times Per Week Do You Consume Alcohol? Less Than 1 Time Per Week Information not available 01/09/2023 Do You Use Any Illicit Or Recreational Drugs? No Information not available 01/09/2023 Have You Recently Traveled Abroad? No Information not available 01/09/2023 Do You Or Have You Ever Used Any Other Forms Of Tobacco Or Nicotine? No Information not available 01/09/2023 Sex: Unknown Functional Status None recorded. Mental Status None recorded. Family History Relationship Description Onset Age of this Age Resolved Age Notes LastModified by Organization Details LastModified Time Father No current problems or disability [email or web address] Not available 01/09 09:12:55 Mother No current problems or disability [email or web address] Not available 01/09 09:12:55 Medical History No medical history recorded. Gynecological History Statement/Question Response Date of LMP 04/03/2023 Is there any chance of ? No Obstetrics History GPAL:G 0 P 0 0 0 0 Immunizations Vaccine Type Date Status Note Provider Nam e and Address Organization Details Recorded Time Influenza, split virus, quadrivalent, preservative 9 completed Juliet Child null, [place] - [facility] 01/09/2023 09:12:08 Tdap 9 completed Juliet Child null, PA - [facility] 01/09/2023 09:12:08 Tdap 8 completed Juliet Child null, PA - [facility] 01/09/2023 09:12:08 Hep B, adult 9 completed Juliet Jce null, PA - [facility] 01/09/2023 09:12:08 Past Encounters Encounter ID Performer Location Encounter Start Date Encounter Closed Date Diagnosis/Indication Diagnosis SNOMED-CT Code Diagnosis ICD10 Code Diagnosis Note [id number] [address] [address] 07/15/2019 19:15:20 07/15/2019 20:02:28 [id number] Isidoro Hines [place] [address] [address] 01/09/2023 08:34:14 01/09/2023 09:44:56 Acute atopic conjunctivitis of bilateral eyes 1601192145 20106 H10.13 [id number] Mickey Browne MD [address] [address] 04/03/2023 12:58:15 04/03/2023 13:57:33 Tick bite 44323730 W57.XXXA Advised to [place] the area of the tick bit and monitor for increasing size of rash or bullseye. There is no benefit of blood testing for Lyme disease at the time of the tick bite; even people who become infected will not have a positive blood test until approximat marielle two to six weeks after the infection develops (post-tick bite)Monit or for symptoms : Onset of symptoms is three to 14 days (average seven days) after tick bite. Initial symptoms may include: high fever, severe headache, muscle aches, nausea, vomiting and loss of appetite. Later symptoms: rash (two to six days after onset of fever), abdominal pain, joint pain and diarrhea.P lease follow up with PCP or Urgent Care in 3-5 days if no improvemen t or if any new symptoms occur that are concerning .Call 911 or go to nearest ER if you develop any shortness of breath, chest pain, severe headache, dizziness, or other concerning symptoms Health Concerns Section Related Observation LastModified by Organization Detai ls LastModified Time None Recorded Concern Status LastModified by Organization Details LastModified Time None Recorded Advance Directives Directive None Recorded Payers Encounter Date Sequence Insurance Name Policy Number Policy Stewart Covered Member ID Stewart Member ID Guarantor Name 07/15/2019 1 UMR [id number] Sharon Carrera [id number] Sharon Nathoire 01/09/2023 1 [place] [id number] Polly Mendez [id number] Sharon Nathoire 04/03/2023 1 [facility] Shraonkris Nathoire [id number] Sharonkris Nathoire Notes Date Note Type Note Provider Name and Address Organization Details Recorded Time 3 text/html Eye problemsReported bypatient.source of patient informationInformation obtained from patient; Patient arrived at Urgent Care ambulatory; learning styles: auditory Location:bilateral Eye Symptoms:no pain in the eyes; no blurred vision;sensitivity to light;redness;discharge;wa vini Severity:mild Onset/Timindays Context:allergies Modifying Factors:nothing gives relief nathan Aggravating factors:bright light makes it worse nathan Alleviating factors:nothing helps Isidoro Hines NP [address] [place], [address], PA - [facility] 01/09/2023 09:42:38 3 text/html Skin Redness UCReported bypatient.Location:left legs Quality:not painful;erythematous Severity:improving Aggravating factors:nothing makes it worse Symptoms:no fever; no nausea; no vomiting; no swellingNotes:tick still attached left upper outer thigh Mickey Browne MD [address] [place], [address], PA - [facility] 04/03/2023 14:44:15 OBGyn Episode No OBEpisode recorded.
== END 2024-10-21 10:20 | disposition home or self-care (01) ==
PROVIDERS: PCP Nurse Practitioner Family; Visit Provider Nurse Practitioner Family
DX: M79.605 Pain in left leg (principal); V89.2XXD Person injured in unspecified motor-vehicle accident, traffic, subsequent encounter; M25.562 Pain in left knee; S00.03XD Contusion of scalp, subsequent encounter; R07.81 Pleurodynia

== ENCOUNTER → 2024-10-21 09:35 | Outpatient (BNVA) | payer OTHER, SELFPAY | PROVIDERS: PCP Nurse Practitioner Family; Visit Provider Nurse Practitioner Family | DX: M25.562 Pain in left knee (principal); M79.605 Pain in left leg; S00.03XD Contusion of scalp, subsequent encounter; R07.81 Pleurodynia | CPT/HCPCS: 96127 ==

== ENCOUNTER 2024-10-21 10:37 | Outpatient (AMB) | payer OTHER, SELFPAY ==
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
== END 2024-10-21 10:38 | disposition home or self-care (01) ==
LOC: HO.HMCFM 10:37
PROVIDERS: PCP Nurse Practitioner Family; Visit Provider Nurse Practitioner Family
DX: N30.00 Acute cystitis without hematuria (principal); F41.1 Generalized anxiety disorder; R55 Syncope and collapse; E55.9 Vitamin D deficiency, unspecified

== ENCOUNTER 2024-10-22 12:50 | Outpatient (REF) | payer OTHER, SELFPAY ==
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
--- OUTSIDE RECORDS SUMMARY | 2024-10-22 15:03 | XMS_ITS | Data Portability ---
Author Organization [facility], [address] Address [address] [place] [address] Care Team Providers Care V Belt Finisher Name Role Phone WINSTON FIELDS Primary Care Provider Assessment No assessment recorded. Plan of Treatment Reminders Order Date Submit Date Provider Last Modified By Organization Details Last Modified Time Details Appointments None recorded. Lab None recorded. Referral None recorded. Procedures None recorded. Surgeries None recorded. Imaging None recorded. Medication Orders Allergy Eye (ketotifen) 0.025 % (0.035 %) drops 2022 023 NATHAN [facility]630[facility], [address] [place], [place], [id number], 3 14:23:41 doxycycline hyclate 100 mg capsule 2022 023 [id number], [address] [place], [place], [id number], 3 13:54:14 Patient TargetsNo targets recorded. Patient Instructions Encounter Date Encounter Id Patient Instructions Last Modified By Organization Details Last Modified Time 01/09/2023 [id number] .all [email or web address] Not available 01/09 09:40:52 Use [...] 04/03/2023 Tick Bite completed Mickey Browne MD [address] [place] [address] [place], [address], [place] [facility] 04/03/2023 14:43:47 Imaging Results None recorded. Procedure Notes None recorded. Medical Equipment None Reported. Allergies Allergen ID Allergen Name Allergen Category Reaction Reaction Severity Criticality Documentation Date Start Date Code Code System Note Provider Name and Address Organization Details Recorded Time 782077 amoxicill in medicatio n hives Not available [...] Updated DateTime 3 162.56 cm 22.3 kg/m2 92179.0 1 g 99 % 99 % 79 /min 18 /min 98.4 [degF] 115 mm[Hg] 77 mm[Hg] Juliet [facility] 3 09:15:27 Date Recorded Body height Body mass index (BMI) Body weight Body temperature Respiratory rate Heart rate Oxygen saturation Oxygen saturation in Arterial blood by Pulse oximetry Systolic blood pressure Diastolic blood pressure Provider Name and Address Organization Details Last Updated DateTime 3 162.56 cm 22.3 kg/m2 04113.0 1 g 97.8 [degF] 18 /min 78 /min 100 % 100 % 143 mm[Hg] 68 mm[Hg] MASSIMO Rodriguez [facility] 13:19:13 Social History Question Answer Notes LastModified by [employer] Details LastModified Time Tobacco Smoking Status Never Smoker Juliet cerna [facility] 01/09/2023 09:13:09 What Is Your Level Of [...] SNOMED-CT Code Diagnosis ICD10 Code Diagnosis Note [id number] [address] [address] 07/15/2019 19:15:20 07/15/2019 20:02:28 [id number] Isidoro Hines NP [address] [address] 01/09/2023 08:34:14 01/09/2023 09:44:56 Acute atopic conjunctivitis of bilateral eyes [id number] 87523 H10.13 [id number] Mickey Browne MD [address] [address] 04/03/2023 12:58:15 04/03/2023 13:57:33 Tick bite [id number] W57.XXXA Advised to twenty[place]nine palms the area of the tick bit and [...] Member ID Guarantor Name 07/15/2019 1 UMR [id number] Sharon Carrera [id number] Sharon Nathoire 01/09/2023 1 [place] [id number] Polly Mendez [id number] Sharon Nathoire 04/03/2023 1 [facility] Sharonkris Nathoire [id number] Sharonkris Nathoire Notes Date Note Type [...] Isidoro Hines NP [address] [place], [address], [place] - [facility] 01/09/2023 09:42:38 3 text/html Skin Redness UCReported bypatient.Location:left legs Quality:not painful;erythematous Severity:improving Aggravating factors:nothing makes it worse Symptoms:no fever; no nausea; no vomiting; no swellingNotes:tick still attached left upper outer thigh Mickey Browne MD [address] [place], [address], [place] - [facility] 04/03/2023 14:44:15 OBGyn Episode No OBEpisode recorded.
== END 2024-10-22 12:51 | disposition home or self-care (01) ==
LOC: HO.HMGCX 12:50
PROVIDERS: PCP Nurse Practitioner Family; Visit Provider Nurse Practitioner Family
DX: M25.562 Pain in left knee (principal); M79.605 Pain in left leg; V89.2XXA Person injured in unspecified motor-vehicle accident, traffic, initial encounter
CPT/HCPCS: 73552; 73564; 73590

== ENCOUNTER → 2024-10-22 13:02 | Outpatient (BNV) | payer OTHER, SELFPAY | PROVIDERS: PCP Nurse Practitioner Family; Visit Provider Radiology Diagnostic Radiology | DX: M25.562 Pain in left knee (principal); M79.605 Pain in left leg | CPT/HCPCS: 73552; 73564; 73590 ==

== ENCOUNTER → 2024-11-14 09:54 | Outpatient (BNVA) | payer OTHER, SELFPAY | PROVIDERS: PCP Nurse Practitioner Family; Visit Provider Orthopaedic Surgery ==

== ENCOUNTER → 2024-11-14 09:54 | Outpatient (AMB) | payer OTHER, SELFPAY ==
--- OUTSIDE RECORDS SUMMARY | 2024-11-14 09:58 | XMS_ITS | Encounter Summary ---
Author Organization [facility] Address [address] [place] [address] Phone Care Team Providers Care Senior Clinical Data Analyst Name Role Phone Juan Young MD Primary Care Provider Encounter Details Date Type Department Care Team (Late st Contact Info) Description 10/28/2014 Documentation [facility] [place] [address] [place] [address] Family Medicine, Physician [address] [place], [place] [id number] Social History Tobacco Use Types Packs/Day Years Used Date Smoking Tobacco: Never Comments:Never smoker Comments Unknown Sex and Gender Information Value Date Recorded Sex Assigned at Not on file Legal Sex Female 4:57 PM EDT Gender Identity Not on file Sexual Orientation Not on file documented as of this encounter Plan of Treatment Not on file documented as of this encounter Visit Diagnoses Not on filedocumented in this encounter Care Teams Senior Clinical Data Analyst Relationship Specialty Start Date End Date Juan Young MD [address] [place] [address] PCP - General 05/19/17 01/10/23 documented as of this encounter
--- OUTSIDE RECORDS SUMMARY | 2024-11-14 09:58 | XMS_ITS | Encounter Summary ---
Author Organization [facility] Address [address] [place] [address] Phone Care Team Providers Care Die Cutter Diamond Name Role Phone Juan Young MD Primary Care Provider [phone] Encounter Details Date Type Department Care Team (Late st Contact Info) Description 05/19/2015 Documentation [facility] [place] [address] [place] [address] Family Medicine, Physician [address] [place], [place] [id number] Social History Tobacco Use Types Packs/Day Years [...] on filedocumented in this encounter Care Teams Die Cutter Diamond Relationship Specialty Start Date End Date Juan Young MD [address] [place] [address] PCP - General 05/19/17 01/10/23 documented as of this encounter
--- OUTSIDE RECORDS SUMMARY | 2024-11-14 09:58 | XMS_ITS | Encounter Summary ---
Author Organization [facility] Address [address] [place] [address] Phone Care Team Providers Care Ski Production Supervisor Name Role Phone Juan Young MD Primary Care Provider [phone] Encounter Details Date Type Department Care Team ([facility] Contact Info) Description 05/25/2017 Conversion Encounter [facility] [address] [place] [address] Social History Tobacco Use Types Packs/Day Years [...] on filedocumented in this encounter Care Teams Ski Production Supervisor Relationship Specialty Start Date End Date Juan Young MD [address] [place] [address] PCP - General 05/19/17 01/10/23 documented as of this encounter
--- OUTSIDE RECORDS SUMMARY | 2024-11-14 09:58 | XMS_ITS | Clinical Summary ---
Author Organization [facility] Address [address] [place] [address] Phone Care Team Providers Care Cone Operator Name Role Phone Unavailable Primary Care Provider Unavailabl e Immunizations Immunization Administration Dates Next Due DTP 07/24/1998, 8,1997, 997 DTaP 5 01/23/2001 Hep B, ped/adol 1997,1997,1997 Hib (PRP-T) 04/20/1998, 8,1997, 997 IPV 01/23/2001 MMR 01/23/2001,02/16/1998 Meningococcal Conj (Menactra) MCV4P 08/26/2008 OPV 1997,1997,1997 Tdap 08/26/2008 Varicella 08/26/2008,01/14/2000 Family History Relation Name Status Comments Brother Alive Brother: Alive and well Other Family history of Hypertension, No family history of *Thrombophilia, Family history of Elevated cholesterol Social History Tobacco Use Types Packs/Day Years Used Date Smoking Tobacco: Never Comments:Never smoker Comments Unknown Sex and Gender Information Value Date Recorded Sex Assigned at Not on file Legal Sex Female 4:57 PM EDT Gender Identity Not on file Sexual Orientation Not on file Last Filed Vital Signs Vital Sign Reading Time Taken Comments Blood Pressure 119/72 05/20/2015 12:00 AM EDT Pulse 87 05/20/2015 12:00 AM EDT Temperature 35.9 ??C (96.7 ??F) 05/20/2015 12:00 AM E DT Respiratory Rate - - Oxygen Saturation - - Inhaled Oxygen Concentration - - Weight 58.5 kg (129 lb) 05/20/2015 12:00 AM EDT Height 162.6 cm (5' 4 ) 05/20/2015 12:00 AM EDT Body Mass Index 22.14 05/20/2015 12:00 AM EDT Plan of Treatment Health Maintenance Due Date Last Done Comments DTaP,Tdap,and Td Vaccines (7 - Td or Tdap) 08/26/2018 08/26/2008, 01/23/2001, 07/24/1998, Additional history exists Influenza Vaccines (#1) 2024 COVID-19 Vaccine ( season) 2024 Hepatitis B Vaccines Completed 1997, 1997, 1997 HIB Vaccines Completed 04/20/1998, 03/1998, 1997, Additional history exists IPV Vaccines Completed 01/23/2001, 03/1998, 1997, Additional history exists MMR Vaccines Completed 01/23/2001, 02/16/1998 Meningococcal Vaccine Aged Out 08/26/2008 No dayton ghislaine eligible based on patient's age to complete this topic Varicella Vaccines Completed 08/26/2008, 01/14/2000 HPV Vaccines Aged Out No longer eligi ble based on patient's age to complete this topic Hepatitis A Vaccines Aged Out No long er eligible based on patient's age to complete this topic Men B Vaccine Aged Out No longer elig ible based on patient's age to complete this topic Pneumococcal Vaccine Aged Out No long er eligible based on patient's age to complete this topic Procedures * Due to [place] [employer] law, this organization might not be sharing sensitive test results. Procedure Name Priority Date/Time Associated Diagnosis Comments CHLAMYDIA AND GONORRHEA, AMPLIFIED Routine 05/20/2015 1:34 PM EDT from Last 3 Months or Most Recently Relevant to Health Maintenance Results * Due to [place] [employer] law, this organization might not be sharing sensitive test results. * Chlamydia and Gonorrhoea, Amplified (05/20/2015 1:34 PM EDT) URINE CHLAMYDIA AMP PROBE NEGATIVE [facility] Comment: No Chlamydia Trachomatis RNA detected in this patient's sample (REFERENCE RANGE/NORMAL VALUE: NOT DETECTED) URINE GC AMP PROBE NEGATIVE [facility] Comment: No Neisseria Gonorrhoeae RNA detected in this patient's sample (REFERENCE RANGE/NORMAL VALUE: NOT DETECTED) NOTE: This test uses chief wheelage clerk-mediated amplification method to detect rRNA from C.Trachomatis and N.Gonorrhoeae. A negative result does not preclude infection. In the case of a negative urine result, testing of an endocervical(female) or urethral(male) specimen is recommended if there is high clinical suspicion of infection. The performance characteristics of this test have not been evaluated in children. The Aptima Combo2 assay is not intended for the evaluation of suspected sexual abuse or for other medico-legal indications. The ordering provider should assess if the patient had consensual sex without risk of sexual abuse. Consult the [facility] if needed. Contact phone number . Therapeutic failure or success cannot be determined with the Aptima Combo2 assay since nucleic acid may persist following appropriate antimicrobial therapy. The Centers for Disease Control and Prevention (CDC) recommends confirmatory retesting using culture or a different nucleic acid amplification test when positive results occur, if indicated. Testing performed or reported by [facility], a Service of [facility], [address] [place] [address] Presley Hewitt MD, PhD, Human Resources District Manager 05/20/2015 1:34 PM EDT Narrative [facility] - 05/20/2015 1:34 PM EDT URINE CHLAMYDIA GC AMP PROBE us Renetta Stanley MD LAB MICROBIOLOGY - GENERAL ORDER PATRICK Final Result [facility] [address] [place] [address], [place] from Last 3 Months or Most Recently Relevant to Health Maintenance
--- OUTSIDE RECORDS SUMMARY | 2024-11-14 09:58 | XMS_ITS | Encounter Summary ---
Author Organization [facility] Address [address] [place] [address] Phone Care Team Providers Care Critical Care Unit Nurse Name Role Phone Juan Young MD Primary Care Provider [phone] Encounter Details Date Type Department Care Team (Late st Contact Info) Description 11/03/2016 Documentation [facility] [address] [place] [address] Family Medicine, Physician [address] [place], [place] [id number] Social History Tobacco Use Types Packs/Day Years [...] on filedocumented in this encounter Care Teams Critical Care Unit Nurse Relationship Specialty Start Date End Date Juan Young MD [address] [place] [address] PCP - General 05/19/17 01/10/23 documented as of this encounter
--- OUTSIDE RECORDS SUMMARY | 2024-11-14 09:58 | XMS_ITS | Data Portability ---
Author Organization [facility], [address] Address [address] [place] [address] Care Team Providers Care Foreign Banknote Teller Trader Name Role Phone WINSTON FIELDS Primary Care Provider [phone] Assessment No assessment recorded. Plan of Treatment Reminders Order Date Submit Date Provider Last Modified By Organization Details Last Modified Time Details Appointments None recorded. Lab None recorded. Referral None recorded. Procedures None recorded. Surgeries None recorded. Imaging None recorded. Medication Orders Allergy Eye (ketotifen) 0.025 % (0.035 %) drops 2022 023 [id number], [address] [place], [place], [id number], 3 14:23:41 doxycycline hyclate 100 mg capsule 2022 023 [id number], [address], [place], [id number], 3 13:54:14 Patient TargetsNo targets recorded. Patient Instructions Encounter Date Encounter Id Patient Instructions Last Modified By Organization Details Last Modified Time 01/09/2023 [id number] .[email or web address] Not available 01/09 09:40:52 Use [...] 04/03/2023 Tick Bite completed Mickey Browne MD [address] [place] [address] [place], [address], [place] - [facility] 04/03/2023 14:43:47 Imaging Results None recorded. Procedure Notes None recorded. Medical Equipment None Reported. Allergies Allergen ID Allergen Name Allergen Category Reaction Reaction Severity Criticality Documentation Date Start Date Code Code System Note Provider Name and Address Organization Details Recorded Time 546512 amoxicill in medicatio n hives Not available Not available 01/09/2023 723 RxNorm Juliet cerna PA - [facility] 09:12:22 Medications Name Sig Start Date Stop Date Status Note LastModified by Organization Details LastModified Time doxycycline hyclate 100 mg capsule Take 2 capsules every day by oral route for 1 day. 2022 active Not Available Not Available Not Avai lable Vitals Date Recorded Body height Body mass index (BMI) Body weight Pain severity - 0-10 verbal numeric rating [Score] - Reported Oxygen saturation Oxygen saturation in Arterial blood by Pulse oximetry Heart rate Respiratory rate Body temperature Systolic blood pressure Diastolic blood pressure Provider Name and Address Organization Details Last Updated DateTime 3 162.56 cm 22.3 kg/m2 86567.0 1 g 3 99 % 99 % 79 /min 18 /min 98.4 [degF] 115 mm[Hg] 77 mm[Hg] Julietiván Luxcherise PA [facility] 09:15:27 Date Recorded Body height Body mass index (BMI) Body weight Body temperature Respiratory rate Heart rate Oxygen saturation Oxygen saturation in Arterial blood by Pulse oximetry Systolic blood pressure Diastolic blood pressure Provider Name and Address Organization Details Last Updated DateTime 3 162.56 cm 22.3 kg/m2 87593.0 1 g 97.8 [degF] 18 /min 78 /min 100 % 100 % 143 mm[Hg] 68 mm[Hg] MASSIMO Rodriguez [facility] 13:19:13 Social History Question Answer Notes LastModified by Organizat ion Details LastModified Time Tobacco Smoking Status Never Smoker Juliet cerna [facility] 01/09/2023 09:13:09 What Is Your Level Of [...] split virus, quadrivalent, preservative 9 completed Juliet Jce null, PA - [facility] 01/09/2023 09:12:08 Tdap 9 completed Juliet Lebrontte null, PA - [facility] 01/09/2023 09:12:08 Tdap 8 completed Juliet Monseratte null, PA - [facility] 01/09/2023 09:12:08 Hep B, adult 9 completed Juliet Monfette null, PA - [facility] 01/09/2023 09:12:08 Past Encounters Encounter ID Performer Location Encounter Start Date Encounter Closed Date Diagnosis/Indication Diagnosis SNOMED-CT Code Diagnosis ICD10 Code Diagnosis Note [id number] [address] [address] 07/15/2019 19:15:20 07/15/2019 20:02:28 [id number] [place] [address] [address] 01/09/2023 08:34:14 01/09/2023 09:44:56 Acute atopic conjunctivitis of bilateral eyes [id number] 31887 H10.13 [id number] Mickey Browne MD [address] [address] 04/03/2023 12:58:15 04/03/2023 13:57:33 Tick bite 67358012 W57.XXXA Advised to ak chin the area of the tick bit and [...] Member ID Guarantor Name 07/15/2019 1 UMR [id number] Sharonkris Nathoire [id number] Sharon Carrera 01/09/2023 1 [place] [id number] Polly Mendez [id number] 16 Sharon Carrera 04/03/2023 1 [facility] Shraon Carrera [id number] Sharon Carrera Notes Date Note Type Note Provider Name [...] Isidoro Hines NP [address] [place], [address], [place] - [facility] 01/09/2023 09:42:38 3 text/html Skin Redness UCReported bypatient.Location:left legs Quality:not painful;erythematous Severity:improving Aggravating factors:nothing makes it worse Symptoms:no fever; no nausea; no vomiting; no swellingNotes:tick still attached left upper outer thigh Mickye Browne MD [address] [place], [address], [place] - [facility] 04/03/2023 14:44:15 OBGyn Episode No OBEpisode recorded.
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
== END | disposition home or self-care (01) ==
PROVIDERS: PCP Nurse Practitioner Family; Visit Provider Orthopaedic Surgery
CPT/HCPCS: 99203

== ENCOUNTER 2024-11-20 08:00 | Outpatient (RCR) | payer OTHER, SELFPAY ==
--- NOTE | 2024-10-24 08:58 | MHC.PT.EP ---
[facility] [place] [facility] [place] [facility] [place] [facility] [address] Chance Patterson [address] [phone] F: [phone] F: [phone] F: [phone] F: [phone] Physical Therapy Plan of Care Date of Evaluation: 10/24/24 Date of Surgery: Diagnosis: neck and back pain Assessment: Patient is a 29 year old R handed female who presents with s/s consistent with neck and back pain. 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 Patient past medical history includes [place]. Current impairments include pain, posture, ROM, strength, activity tolerance and functional mobility. Functional limitations include decreased ability to sleep, walk, lift, carry, push, pull, exercise, drive and be active. Patient is motivated with good rehab potential. Skilled PT will address impairments and functional limitations in order to achieve goals. Frequency and Duration: The patient will be seen 2x/week for 5 weeks Short Term Goals: I with HEP - 2 weeks AROM rotation 75% and pain free -3 weeks TTP absent - 3 weeks Max pain with ADLs 3/10 -3 weeks Industrial Health And Safety Professor Goals: Max pain with ADLs /10 - 5 weeks AROM rotation 100% and pain free -5 weeks Restore PLOF with improved postural awareness - 5 weeks Oswestry and NPDI 2% or better - 5 weeks Treatment Plan: Modalities to reduce pain, spasms and effusion. Manual therapy to restore motion and function. Therapeutic exercise to improve strength and flexibility. Neuromuscular re-education for posture and balance. Therapeutic activities to return to functional activities of daily living. Electronically signed by: Jose Mock, PT Please sign and return to therapist. Thank you for your referral.
--- NOTE | 2025-01-01 11:03 | MHC.PT.DC ---
[facility] [place] [facility] [place] [facility] [place] Office [address] Chance Patterson [address] [phone] F: [phone] F: [phone] F: [phone] F: [phone] Physical Therapy Discharge Report Diagnosis: neck and back pain Date of Surgery: Date of Evaluation: 10/24/24 Date of Discharge: 12/02/24 Treatments to Date: 6 Cancellations to Date: No Shows to Date: Discharge Status: Improved Function Independent with HEP Discharge Summary: 11/20/24: reduced TTP. improved pain free sleep and function. AROM 100% and pain free. I with HEP. Max pain with ADLs 11/18. Pt has progressed towards or met all goals. She will try to continue with HEP only and call back as needed. 11/14/24: progressing functionally and symptomatically. reduced TTP and rib related pain. 11/05/24: pt progressing well with skilled PT. reduced TTP and increased tolerance to pressures. pain with prone incline so modified. 10/31/24: pt progressing with good activity tolerance. less evening and morning discomfort. increased pain immediately after treatment. continue to progress cautiously. 10/29/24: pt with irritable s/s. gentle progression today to tolerance. STM to reduced pain threshold/sensitivity. continue to progress as tolerated. Patient is a 29 year old R handed female who presents with s/s consistent with neck and back pain. 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 Patient past medical history includes OH. Current impairments include pain, posture, ROM, strength, activity tolerance and functional mobility. Functional limitations include decreased ability to sleep, walk, lift, carry, push, pull, exercise, drive and be active. Patient is motivated with good rehab potential. Skilled PT will address impairments and functional limitations in order to achieve goals. Electronically signed by: Jose Mock, PT Please sign and return to therapist. Thank you for your referral.
== END 2025-01-01 11:04 | disposition home or self-care (01) ==
LOC: HO.PTCHIC 08:00
PROVIDERS: PCP Nurse Practitioner Family; Visit Provider Physician Assistant Medical
DX: M54.9 Dorsalgia, unspecified (principal); M54.2 Cervicalgia; M25.512 Pain in left shoulder
CPT/HCPCS: 97110; 97140; 97161

== ENCOUNTER 2024-12-18 07:51 | Outpatient (AMB) | payer OTHER, SELFPAY ==
--- OUTSIDE RECORDS SUMMARY | 2024-12-18 07:56 | XMS_ITS | Encounter Summary ---
Author Organization [facility] Address [address] [place] [address] Phone Care Team Providers Care Appliance Technician Name Role Phone Juan Young MD Primary Care Provider [phone] Encounter Details Date Type Department Care Team ([facility] Contact Info) Description 05/25/2017 Conversion Encounter [facility] [address] [place] [address] Social History Tobacco Use Types Packs/Day Years [...] on filedocumented in this encounter Care Teams Appliance Technician Relationship Specialty Start Date End Date Juan Young MD [address] [place] [address] PCP - General 05/19/17 01/10/23 documented as of this encounter
--- OUTSIDE RECORDS SUMMARY | 2024-12-18 07:56 | XMS_ITS | Encounter Summary ---
Author Organization [facility] Address [address] [place] [address] Phone Care Team Providers Care Agricultural Extension Specialist Name Role Phone Juan Young MD Primary Care Provider [phone] Encounter Details Date Type Department Care Team (Late st Contact Info) Description 11/03/2016 Documentation [facility] [place] Family Medicine [address] [place] [address] Family Medicine, Physician [address] [place], [place] [phone] Social History Tobacco Use Types Packs/Day Years [...] on filedocumented in this encounter Care Teams Agricultural Extension Specialist Relationship Specialty Start Date End Date Juan Young MD [address] [place] [address] PCP - General 05/19/17 01/10/23 documented as of this encounter
--- OUTSIDE RECORDS SUMMARY | 2024-12-18 07:56 | XMS_ITS | Encounter Summary ---
Author Organization [facility] Address [address] [place] [address] Phone Care Team Providers Care Water Quality Manager Name Role Phone uJan Young MD Primary Care Provider [phone] Encounter Details Date Type Department Care Team (Late st Contact Info) Description 10/28/2014 Documentation [facility] [place] [facility] [address] [place] [address] Family Medicine, Physician [address] [place], [place] [phone] Social History Tobacco Use Types Packs/Day Years [...] on filedocumented in this encounter Care Teams Water Quality Manager Relationship Specialty Start Date End Date Juan Young MD [address] [place] [address] PCP - General 05/19/17 01/10/23 documented as of this encounter
--- OUTSIDE RECORDS SUMMARY | 2024-12-18 07:56 | XMS_ITS | Data Portability ---
Author Organization [facility] [address] Address [address] [place] [address] Care Team Providers Care Transportation Operations Manager Name Role Phone WINSTON FIELDS Primary Care Provider [phone] Assessment No assessment recorded. Plan of Treatment Reminders Order Date Submit Date Provider Last Modified By Organization Details Last Modified Time Details Appointments None recorded. Lab None recorded. Referral None recorded. Procedures None recorded. Surgeries None recorded. Imaging None recorded. Medication Orders doxycycline hyclate 100 mg capsule 2022 023 [id number], [address] [place], [place], [id number], 3 13:54:14 Allergy Eye (ketotifen) 0.025 % (0.035 %) drops 2022 023 [id number], [address] [place], [place], [phone], 3 14:23:41 Patient TargetsNo targets recorded. Patient Instructions Encounter Date Encounter Id Patient Instructions Last Modified By Organization Details Last Modified Time 01/09/2023 [id number] .all [email or web address] Not available 01/09 09:40:52 Use [...] 04/03/2023 Tick Bite completed Mickey Browne MD [address] [place] [address] [place], [address], PA - [facility] 04/03/2023 14:43:47 Imaging Results None recorded. Procedure Notes None recorded. Medical Equipment None Reported. Allergies Allergen ID Allergen Name Allergen Category Reaction Reaction Severity Criticality Documentation Date Start Date Code Code System Note Provider Name and Address Organization Details Recorded Time 948564 amoxicill in medicatio n hives Not available [...] Updated DateTime 3 162.56 cm 22.3 kg/m2 54846.0 1 g 3 99 % 99 % 79 /min 18 /min 98.4 [degF] 115 mm[Hg] 77 mm[Hg] Julietiván Luxcherise PA [facility] 09:15:27 Date Recorded Body height Body mass index (BMI) Body weight Body temperature Respiratory rate Heart rate Oxygen saturation Oxygen saturation in Arterial blood by Pulse oximetry Systolic blood pressure Diastolic blood pressure Provider Name and Address Organization Details Last Updated DateTime 3 162.56 cm 22.3 kg/m2 86668.0 1 g 97.8 [degF] 18 /min 78 /min 100 % 100 % 143 mm[Hg] 68 mm[Hg] MASSIMO Rodriguez [facility] 13:19:13 Social History Question Answer Notes LastModified by Organizat ion Details LastModified Time Tobacco Smoking Status Never Smoker Juliet cerna [facility] 01/09/2023 09:13:09 What Is Your Level [...] SNOMED-CT Code Diagnosis ICD10 Code Diagnosis Note [id number] [address] [address] 07/15/2019 19:15:20 07/15/2019 20:02:28 [id number] [place] [address] [address] 01/09/2023 08:34:14 01/09/2023 09:44:56 Acute atopic conjunctivitis of bilateral eyes [id number] 19405 H10.13 [id number] Mickey Browne MD [address] [address] 04/03/2023 12:58:15 04/03/2023 13:57:33 Tick bite 89344675 W57.XXXA Advised to little shell tribe the area of the tick bit and [...] Member ID Guarantor Name 07/15/2019 1 UMR [id number] Sharonkris Nathoire [id number] Sharon Carrera 01/09/2023 1 [place] [id number] Polly Mendez [id number] Sharon Carrera 04/03/2023 1 [facility] Sharon Carrera [id number] Sharon Carrera Notes Date Note Type Note Provider Name and Address Organization Details Recorded Time 3 text/html Eye problemsReported bypatient.source of patient informationInformation obtained from patient; Patient arrived at Urgent Care ambulatory; learning styles: auditory Location:bilateral Eye Symptoms:no pain in the eyes; no blurred vision;sensitivity to light;redness;discharge;wa vnii Severity:mild Onset/Timindays Context:allergies Modifying Factors:nothing gives relief nathan Aggravating factors:bright light makes it worse nathan Alleviating factors:nothing helps Isidoro Hines NP [address] [place], [address], [place] - [facility] 01/09/2023 09:42:38 3 text/html Skin Redness UCReported bypatient.Location:left legs Quality:not painful;erythematous Severity:improving Aggravating factors:nothing makes it worse Symptoms:no fever; no nausea; no vomiting; no swellingNotes:tick still attached left upper outer thigh Mickey Browne MD [address] [place], [address], PA - [facility] 04/03/2023 14:44:15 OBGyn Episode No OBEpisode recorded.
--- OUTSIDE RECORDS SUMMARY | 2024-12-18 07:56 | XMS_ITS | Encounter Summary ---
Author Organization [facility] Address [address] [place] [address] Phone Care Team Providers Care Crayon Molding Machine Operator Name Role Phone Juan Young MD Primary Care Provider [phone] Encounter Details Date Type Department Care Team (Late st Contact Info) Description 05/19/2015 Documentation [facility] [place] Family Medicine [address] [place] [address] Family Medicine, Physician [address] [place], [place] [phone] Social History Tobacco Use Types Packs/Day Years [...] on filedocumented in this encounter Care Teams Crayon Molding Machine Operator Relationship Specialty Start Date End Date Juan Young MD [address] [place] [address] PCP - General 05/19/17 01/10/23 documented as of this encounter
--- OUTSIDE RECORDS SUMMARY | 2024-12-18 07:56 | XMS_ITS | Clinical Summary ---
Author Organization [facility] Address [address] [place] [phone] Phone Care Team Providers Care Second Cook And Baker Name Role Phone Unavailable Primary Care Provider [...] complete this topic Procedures * Due to [place] [employer] law, this organization might not be sharing sensitive test results. Procedure Name Priority Date/Time Associated Diagnosis Comments CHLAMYDIA AND GONORRHEA, AMPLIFIED Routine 05/20/2015 1:34 PM EDT from Last 3 Months or Most Recently Relevant to Health Maintenance Results * Due to [place] [employer] law, this organization might not be sharing [...] VALUE: NOT DETECTED) NOTE: This test uses auctioneer tobacco-mediated amplification method to detect rRNA from C.Trachomatis [...] without risk of sexual abuse. Consult the [facility] if needed. Contact phone number . Therapeutic failure or success cannot be determined with the Aptima Combo2 assay since nucleic acid may persist following appropriate antimicrobial therapy. The Centers for Disease Control and Prevention (CDC) recommends confirmatory retesting using culture or a different nucleic acid amplification test when positive results occur, if indicated. Testing performed or reported by [facility], a Service of [facility], [address] [place] [id number] Presley Hewitt MD, PhD, Manufacturing Baker 05/20/2015 1:34 PM EDT Narrative [facility] - 05/20/2015 1:34 PM EDT URINE CHLAMYDIA GC AMP PROBE us Renetta Stanley MD LAB MICROBIOLOGY - GENERAL ORDER PATRICK Final Result [facility] [address] [place] [id number], [place] from Last 3 Months or Most Recently Relevant to Health Maintenance
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
[2024-12-18 08:07] VITALS: BP 104/66; PULSE 67; RESP 12; TEMP 36.2; O2SAT 99; BMI 22.4
== END 2024-12-18 08:34 | disposition home or self-care (01) ==
LOC: HO.HMCFM 07:52
PROVIDERS: PCP Nurse Practitioner Family; Visit Provider Nurse Practitioner Family
DX: Z00.00 Encounter for general adult medical examination without abnormal findings (principal); Z80.3 Family history of malignant neoplasm of breast; F41.1 Generalized anxiety disorder; E55.9 Vitamin D deficiency, unspecified; R55 Syncope and collapse; L71.9 Rosacea, unspecified

== ENCOUNTER → 2024-12-18 07:51 | Outpatient (BNVA) | payer OTHER, SELFPAY | PROVIDERS: PCP Nurse Practitioner Family; Visit Provider Nurse Practitioner Family | DX: Z00.00 Encounter for general adult medical examination without abnormal findings (principal); F41.1 Generalized anxiety disorder; E55.9 Vitamin D deficiency, unspecified; R55 Syncope and collapse; L71.9 Rosacea, unspecified; D50.0 Iron deficiency anemia secondary to blood loss (chronic); N93.8 Other specified abnormal uterine and vaginal bleeding; Z80.3 Family history of malignant neoplasm of breast | CPT/HCPCS: 96127 ==

== ENCOUNTER 2025-01-08 13:56 | Outpatient (AMB) | payer OTHER, SELFPAY ==
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
--- OUTSIDE RECORDS SUMMARY | 2025-01-08 16:39 | XMS_ITS | Clinical Summary ---
Author Organization [facility] Address [address] [place] [id number] Phone Care Team Providers Care Business Employment Specialist Name Role Phone Unavailable Primary Care Provider [...] complete this topic Procedures * Due to [place] [employer] law, this organization might not be sharing sensitive test results. Procedure Name Priority Date/Time Associated Diagnosis Comments CHLAMYDIA AND GONORRHEA, AMPLIFIED Routine 05/20/2015 1:34 PM EDT from Last 3 Months or Most Recently Relevant to Health Maintenance Results * Due to [place] [employer] law, this organization might not be sharing sensitive test results. * Chlamydia and Gonorrhoea, Amplified (05/20/2015 1:34 PM EDT) URINE CHLAMYDIA AMP PROBE NEGATIVE [facility] Comment: No Chlamydia Trachomatis RNA detected in this patient's sample (REFERENCE RANGE/NORMAL VALUE: NOT DETECTED) URINE GC AMP PROBE NEGATIVE [facility] Comment: No Neisseria Gonorrhoeae RNA detected in this patient's sample (REFERENCE RANGE/NORMAL VALUE: NOT DETECTED) NOTE: This test uses cloth mercerizer back tender-mediated amplification method to detect rRNA from C.Trachomatis [...] without risk of sexual abuse. Consult the [facility] if needed. Contact phone number . Therapeutic failure or success cannot be determined with the Aptima Combo2 assay since nucleic acid may persist following appropriate antimicrobial therapy. The Centers for Disease Control and Prevention (CDC) recommends confirmatory retesting using culture or a different nucleic acid amplification test when positive results occur, if indicated. Testing performed or reported by [facility], a Service of [facility], [address] [place] [address] Presley Hewitt MD, PhD, Named Account Executive 05/20/2015 1:34 PM EDT Narrative [facility] - 05/20/2015 1:34 PM EDT URINE CHLAMYDIA GC AMP PROBE us Renetta Stanley MD LAB MICROBIOLOGY - GENERAL ORDER PATRICK Final Result [facility] [address] [place] [address], [place] from Last 3 Months or Most Recently Relevant to Health Maintenance
--- OUTSIDE RECORDS SUMMARY | 2025-01-08 16:39 | XMS_ITS | Encounter Summary ---
Author Organization [facility] Address [address] [place] [address] Phone Care Team Providers Care Film Developing Machine Operator Name Role Phone Juan Young MD Primary Care Provider [phone] Encounter Details Date Type Department Care Team (Late st Contact Info) Description 11/03/2016 Documentation [facility] [place] [facility] [address] [place] [address] Family Medicine, Physician [address] [place], [place] [id number] Social History Tobacco Use Types Packs/Day Years [...] on filedocumented in this encounter Care Teams Film Developing Machine Operator Relationship Specialty Start Date End Date Juan Young MD [address] [place] [address] PCP - General 05/19/17 01/10/23 documented as of this encounter
--- OUTSIDE RECORDS SUMMARY | 2025-01-08 16:39 | XMS_ITS | Encounter Summary ---
Author Organization [facility] Address [address] [place] [address] Phone Care Team Providers Care Security Architect Name Role Phone Juan Young MD Primary Care Provider Encounter Details Date Type Department Care Team (Late st Contact Info) Description 05/19/2015 Documentation [facility] [place] [facility] [place] Medicine [address] [place] [address] Family Medicine, Physician [address] [place], [place] [id number] Social History Tobacco Use Types Packs/Day Years [...] on filedocumented in this encounter Care Teams Security Architect Relationship Specialty Start Date End Date Juan Young MD [address] [place] [address] PCP - General 05/19/17 01/10/23 documented as of this encounter
--- OUTSIDE RECORDS SUMMARY | 2025-01-08 16:39 | XMS_ITS | Encounter Summary ---
Author Organization [facility] Address [address] [place] [address] Phone Care Team Providers Care Steam Tender Name Role Phone Juan Young MD Primary Care Provider [phone] Encounter Details Date Type Department Care Team (Late st Contact Info) Description 10/28/2014 Documentation [facility] [place] [address] [place] [address] Family Medicine, Physician [address] [place], [place] [phone] Social History Tobacco Use Types Packs/Day Years [...] on filedocumented in this encounter Care Teams Steam Tender Relationship Specialty Start Date End Date Juan Young MD [address] [place] [address] PCP - General 05/19/17 01/10/23 documented as of this encounter
--- OUTSIDE RECORDS SUMMARY | 2025-01-08 16:39 | XMS_ITS | Data Portability ---
Author Organization [facility] [address] Address [address] [place] [address] Care Team Providers Care Panel Monitor Name Role Phone WINSTON FIELDS Primary Care Provider Assessment No assessment recorded. Plan of Treatment Reminders Order Date Submit Date Provider Last Modified By Organization Details Last Modified Time Details Appointments None recorded. Lab None recorded. Referral None recorded. Procedures None recorded. Surgeries None recorded. Imaging None recorded. Medication Orders doxycycline hyclate 100 mg capsule 2022 023 [id number], [address] [place], [place], [id number], 3 13:54:14 Allergy Eye (ketotifen) 0.025 % (0.035 %) drops 2022 023 [id number], [address] [place], [place], [id number], 3 14:23:41 Patient TargetsNo targets recorded. Patient Instructions Encounter Date Encounter Id Patient Instructions Last Modified By Organization Details Last Modified Time 01/09/2023 [id number] .[email or web address] Not available 01/09 09:40:52 Use [...] 04/03/2023 Tick Bite completed Mickey Browne MD [address] [place] [address] [place], [address], [place] - [employer] [facility] [facility] 04/03/2023 14:43:47 Imaging Results None recorded. Procedure Notes None recorded. Medical Equipment None Reported. Allergies Allergen ID Allergen Name Allergen Category Reaction Reaction Severity Criticality Documentation Date Start Date Code Code System Note Provider Name and Address Organization Details Recorded Time 149584 amoxicill in medicatio n hives Not available [...] Updated DateTime 3 162.56 cm 22.3 kg/m2 99879.0 1 g 3 99 % 99 % 79 /min 18 /min 98.4 [degF] 115 mm[Hg] 77 mm[Hg] Julietiván Luxcherise PA [facility] 09:15:27 Date Recorded Body height Body mass index (BMI) Body weight Body temperature Respiratory rate Heart rate Oxygen saturation Oxygen saturation in Arterial blood by Pulse oximetry Systolic blood pressure Diastolic blood pressure Provider Name and Address Organization Details Last Updated DateTime 3 162.56 cm 22.3 kg/m2 27118.0 1 g 97.8 [degF] 18 /min 78 /min 100 % 100 % 143 mm[Hg] 68 mm[Hg] MASSIMO Rodriguez [employer] [facility] 13:19:13 Social History Question Answer Notes LastModified by Organizat ion Details LastModified Time Tobacco Smoking Status Never Smoker Juliet cerna [employer] [facility] 01/09/2023 09:13:09 What Is Your Level [...] SNOMED-CT Code Diagnosis ICD10 Code Diagnosis Note [id number] [address] [address] 07/15/2019 19:15:20 07/15/2019 20:02:28 [id number] [place] [address] [address] 01/09/2023 08:34:14 01/09/2023 09:44:56 Acute atopic conjunctivitis of bilateral eyes [id number] 22293 H10.13 [id number] Mickey Browne MD [address] [address] 04/03/2023 12:58:15 04/03/2023 13:57:33 Tick bite [id number] W57.XXXA Advised to [place] the area of the tick bit and [...] Member ID Guarantor Name 07/15/2019 1 UMR [id number] Sharonkris Nathoire [id number] Sharon Carrera 01/09/2023 1 [place] [id number] Polly Mendez [id number] Sharon Carrera 04/03/2023 1 [facility] Sharon Carrera [id number] Sharon Carrera Notes Date Note Type [...] Isidoro Hines NP [address] [place], [address], [place] - [facility] 01/09/2023 09:42:38 3 text/html Skin Redness UCReported bypatient.Location:left legs Quality:not painful;erythematous Severity:improving Aggravating factors:nothing makes it worse Symptoms:no fever; no nausea; no vomiting; no swellingNotes:tick still attached left upper outer thigh Mickey Browne MD [address] [place], [address], [place] - [facility] 04/03/2023 14:44:15 OBGyn Episode No OBEpisode recorded.
--- OUTSIDE RECORDS SUMMARY | 2025-01-08 16:39 | XMS_ITS | Encounter Summary ---
Author Organization [facility] Address [address] [place] [address] Phone Care Team Providers Care Precision Agronomist Name Role Phone Juan Young MD Primary Care Provider [phone] Encounter Details Date Type Department Care Team ([facility] Contact Info) Description 05/25/2017 Conversion Encounter [facility] [address] [place] [address] Social History Tobacco Use Types Packs/Day Years [...] on filedocumented in this encounter Care Teams Precision Agronomist Relationship Specialty Start Date End Date Juan Young MD [address] [place] [address] PCP - General 05/19/17 01/10/23 documented as of this encounter
== END 2025-01-08 17:05 | disposition home or self-care (01) ==
LOC: HO.HMCFM 13:56
PROVIDERS: PCP Nurse Practitioner Family; Visit Provider Nurse Practitioner Family
DX: R55 Syncope and collapse (principal)

== ENCOUNTER 2025-07-07 15:28 | Outpatient (AMB) | payer OTHER, SELFPAY ==
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
--- OUTSIDE RECORDS SUMMARY | 2025-07-07 17:29 | XMS_ITS | Encounter Summary ---
Author Organization [facility] Address [address] [place] [address] Phone Care Team Providers Care Chain Builder Name Role Phone Juan Young MD Primary Care Provider Thomas roberts Encounter Details Date Type Department Care Team (Late st Contact Info) Description 11/03/2016 Documentation [facility] [place] [address] [place] [address] Family Medicine, Physician [address] [place] [address] Social History Tobacco Use Types Packs/Day Years [...] on filedocumented in this encounter Care Teams Chain Builder Relationship Specialty Start Date End Date Juan Young MD PCP - General 05/19/17 01/10/23 documented as of this encounter
--- OUTSIDE RECORDS SUMMARY | 2025-07-07 17:29 | XMS_ITS | Encounter Summary ---
Author Organization [facility] Address [address] [place] [address] Phone Care Team Providers Care Director Government Name Role Phone Juan Young MD Primary Care Provider Thomas roberts Encounter Details Date Type Department Care Team (Late st Contact Info) Description 10/28/2014 Documentation [facility] [place] [address] [place] [address] Family Medicine, Physician [address] [place] [address] Social History Tobacco Use Types Packs/Day Years [...] on filedocumented in this encounter Care Teams Director Government Relationship Specialty Start Date End Date Juan Young MD PCP - General 05/19/17 01/10/23 documented as of this encounter
--- OUTSIDE RECORDS SUMMARY | 2025-07-07 17:29 | XMS_ITS | Encounter Summary ---
Author Organization [facility] Address [address] [place] [address] Phone Care Team Providers Care Peer Educator Name Role Phone Juan Young MD Primary Care Provider Thomas roberts Encounter Details Date Type Department Care Team (Late st Contact Info) Description 05/19/2015 Documentation [facility] [place] Family Medicine [address] [place] [address] Family Medicine, Physician [address] [place] [address] Social History Tobacco Use Types Packs/Day Years [...] on filedocumented in this encounter Care Teams Peer Educator Relationship Specialty Start Date End Date Juan Young MD PCP - General 05/19/17 01/10/23 documented as of this encounter
--- OUTSIDE RECORDS SUMMARY | 2025-07-07 17:29 | XMS_ITS | Clinical Summary ---
Author Organization [facility] Address [address] [place], [place] [phone] Phone Care Team Providers Care Spray I Painter Name Role Phone Varsha Gonzalez MD Primary Care Provider Allergies Active Allergy Reactions Criticality Noted Date Comments Amoxicillin 01/19/2022 Medications mometasone (NASONEX) 50 mcg/actuation nasal spray 2 sprays by Nasal route daily. 17 g 12 3 Active Additional Information Patient not taking.Reported on 06/30/2023 methylPREDNISol one (MEDROL DOSEPACK) 4 mg tablet follow package directions 21 tablet 3 Active Active Problems No known active problems Immunizations Immunization Administration Dates Next Due DTP 07/24/1998, 8,1997,03/17 Dtap, 5 Pertussis Antigens 01/23/2001 Hepatitis B 1997,1997,1997 Hepatitis B Adult 10/26/2018 Hib,PRP-T 04/20/1998, 8,1997,03/17 IPV 01/23/2001 Influenza Quadrivalent w/ Pr eservative IM 07/17/2019 MMR 01/23/2001,02/16/1998 Meningococcal MCV4P 08/26/2008 Polio - OPV 1997,1997,1997 Tdap 10/24/2018,08/26/2008 Varicella 08/26/2008,01/14/2000 Social History Tobacco Use Types Packs/Day Years Used Date Smoking Tobacco: Never Smokeless Tobacco: Never Tobacco Cessation:Counseling Given: Not Answered Education Answer Date Recorded Are you interested in more education? Not on forrest e 02/04/2023 Are you concerned about learning? Not on file 02/04/2023 No 02/04/2023 No 02/04/2023 Digital Access Answer Date Recorded No 03/05/2023 No 03/05/2023 Reliable internet access at home? Not on file 03/05/2023 Device with a working camera? Not on file Intimate Partner Violence Answer Date R ecorded Are you denied basic needs s uch as food, clothing, or medical care? No 11/13/2023 In the past 12 months have y ou been in a relationship with a person who hurts, threatens, or tries to control you? No 11/13/2023 Are you denied basic needs s uch as food, clothing, or medical care? No 11/13/2023 In the past 12 months have y ou been in a relationship with a person who hurts, threatens, or tries to control you? No 11/13/2023 Comments Unknown Sex and Gender Information Value Date Recorded Sex Assigned at Female 11/13/2023 10:25 AM EST Legal Sex Female 9:11 AM EDT Gender Identity Female 11/13/2023 10:25 AM EST Sexual Orientation Not on file Last Filed Vital Signs Vital Sign Reading Time Taken Comments Blood Pressure 142/79 11/13/2023 10:24 AM EST Pulse 61 11/13/2023 10:24 AM EST Temperature 36.4 C (97.5 F) 11/13/2023 10:24 AM EST Respiratory Rate 16 11/13/2023 10:24 AM EST Oxygen Saturation 99% 11/13/2023 10:24 AM EST Inhaled Oxygen Concentration - - Weight 59 kg (130 lb) 11/13/2023 10:24 AM EST Height 162.6 cm (5' 4 ) 11/13/2023 10:24 AM EST Body Mass Index 22.31 11/13/2023 10:24 AM EST Plan of Treatment Health Maintenance Due Date Last Done Comments DEPRESSION SCREENING 2009 HEPATITIS C SCREENING 2015 HIV ONE-TIME SCREENING (18-65 YEARS) 2015 PAP SMEAR 2018 INFLUENZA VACCINE (#1) 2025 07/17/2019 COVID-19 VACCINE (1 - 2024-25 season) 2025 Adult Td,Tdap Booster 10/24/2028 10/24/2018, 008 HIB VACCINES Completed 04/20/1998, 03/1998, 1997, Additional history exists MENINGOCOCCAL VACCINES (ACWY) Aged Out 08/26/2008 No longer eligible based on patient's age to complete this topic SMOKING STATUS SCREENING (Once After 26 Yrs) Completed 06/30/2023 HEPATITIS A VACCINES Aged Out No long er eligible based on patient's age to complete this topic MENINGOCOCCAL VACCINES (B) Aged Out N o longer eligible based on patient's age to complete this topic PNEUMOCOCCAL VACCINES (0-49 years) Aged Out No longer eligible based on patient's age to complete this topic Medical Devices Not on file Insurance [place] [address] BENEFITS ADMINISTRATORS [facility] POS EPO VIVIAN [employer] (PICA) BENEFITS ADMINISTRATORS [facility] POS EPO VIV[employer] (PICA) BENEFITS ADMINISTRATORS [employer] BENEFITS ADMINISTRATORS [employer] (PICA) BENEFITS ADMINISTRATORS [facility] [employer] BENEFITS ADMINISTRATORS [employer] BENEFITS ADMINISTRATORS [facility] [place] [address] [place] [address] [employer] (PICA) BENEFITS ADMINISTRATORS [facility] [place] [address] [place] [address] [employer] (PICA) BENEFITS ADMINISTRATORS [facility] POS [place] [address] INSURANCE Care Teams Spray I Painter Relationship Specialty Start Date End Date Varsha Gonzalez MD [address] [place] [address] PCP - General Internal Medicine 01/18/23 Additional Source Comments The information contained in this document represents components of the legal health record. It is not the complete legal health record.[facility]
--- OUTSIDE RECORDS SUMMARY | 2025-07-07 17:29 | XMS_ITS | Clinical Summary ---
Author Organization [facility] Address [address] [place] [phone] Phone Care Team Providers Care Lab Aid Name Role Phone Unavailable Primary Care Provider [...] 87 05/20/2015 12:00 AM EDT Temperature 35.9 C (96.7 F) 05/20/2015 12:00 AM EDT Respiratory Rate - - Oxygen Saturation - [...] 08/26/2018 08/26/2008, 01/23/2001, 07/24/1998, Additional history exists HPV Vaccines (1 - 3-dose SCDM series) 01/12/2024 Influenza Vaccines (#1) 2025 COVID-19 Vaccine (2023-25 season) 2025 Hepatitis B Vaccines Completed 1997, 1997, 1997 HIB Vaccines Completed 04/20/1998, 03/1998, 1997, Additional history exists IPV Vaccines Completed 01/23/2001, 03/1998, 1997, Additional history exists MMR Vaccines Completed 01/23/2001, 02/16/1998 Meningococcal Vaccine Aged Out 08/26/2008 No dayton ghislaine eligible based on patient's age to complete this topic Varicella Vaccines Completed 08/26/2008, 01/14/2000 Hepatitis A Vaccines Aged Out No long er eligible based on patient's age to complete this topic Men B Vaccine Aged Out No longer elig ible based on patient's age to complete this topic Pneumococcal Vaccine Aged Out No long er eligible based on patient's age to complete this topic Procedures * Due to [place] [address] law, this organization might not be sharing sensitive test results. Procedure Name Priority Date/Time Associated Diagnosis Comments CHLAMYDIA AND GONORRHEA, AMPLIFIED Routine 05/20/2015 1:34 PM EDT from Last 3 Months or Most Recently Relevant to Health Maintenance Results * Due to [place] [address] law, this organization might not be sharing sensitive test results. * Chlamydia and Gonorrhoea, Amplified (05/20/2015 1:34 PM EDT) URINE CHLAMYDIA AMP PROBE NEGATIVE [facility] Comment: No Chlamydia Trachomatis RNA detected in this patient's sample (REFERENCE RANGE/NORMAL VALUE: NOT DETECTED) URINE GC AMP PROBE NEGATIVE [facility] Comment: No Neisseria Gonorrhoeae RNA detected in this patient's sample (REFERENCE RANGE/NORMAL VALUE: NOT DETECTED) NOTE: This test uses staff technologist-mediated amplification method to detect rRNA from C.Trachomatis [...] without risk of sexual abuse. Consult the [facility] if needed. Contact phone number . Therapeutic failure or success cannot be determined with the Aptima Combo2 assay since nucleic acid may persist following appropriate antimicrobial therapy. The Centers for Disease Control and Prevention (CDC) recommends confirmatory retesting using culture or a different nucleic acid amplification test when positive results occur, if indicated. Testing performed or reported by [facility], a Service of [facility], [address] [place] [address] Presley Hewitt MD, PhD, Esthetician/Spa Coordinator 05/20/2015 1:34 PM EDT Narrative [facility] - 05/20/2015 1:34 PM EDT URINE CHLAMYDIA GC AMP PROBE us Renetta Stanley MD LAB MICROBIOLOGY - GENERAL ORDER PATRICK Final Result [facility] [address] [place] [address], from Last 3 Months or Most Recently Relevant to Health Maintenance
--- OUTSIDE RECORDS SUMMARY | 2025-07-07 17:29 | XMS_ITS | Encounter Summary ---
Author Organization [facility] Address [address] [place] [address] Phone Care Team Providers Care Electric Motor Rebuilder Name Role Phone Juan Young MD Primary Care Provider Thomas roberts Encounter Details Date Type Department Care Team (Late st Contact Info) Description 05/25/2017 Conversion Encounter [facility] - [address] [address] Social History Tobacco Use Types Packs/Day Years [...] on filedocumented in this encounter Care Teams Electric Motor Rebuilder Relationship Specialty Start Date End Date Juan Young MD PCP - General 05/19/17 01/10/23 documented as of this encounter
== END 2025-07-07 16:00 | disposition home or self-care (01) ==
LOC: HO.HMCFM 15:28
PROVIDERS: PCP Nurse Practitioner Family; Visit Provider Nurse Practitioner Family
DX: R55 Syncope and collapse (principal); E55.9 Vitamin D deficiency, unspecified; R53.83 Other fatigue

== ENCOUNTER 2025-07-10 07:39 | Outpatient (REF) | payer OTHER, SELFPAY ==
--- OUTSIDE RECORDS SUMMARY | 2025-07-10 07:42 | XMS_ITS | Clinical Summary ---
Author Organization [facility] Address [address] [place] [phone] Phone Care Team Providers Care Head Of Quality Name Role Phone Unavailable Primary Care Provider [...] 01/12/2024 Influenza Vaccines (#1) 2025 COVID-19 Vaccine (2024- season) 2025 Hepatitis B Vaccines Completed 1997, [...] complete this topic Procedures * Due to [place] [employer] law, this organization might not be sharing sensitive test results. Procedure Name Priority Date/Time Associated Diagnosis Comments CHLAMYDIA AND GONORRHEA, AMPLIFIED Routine 05/20/2015 1:34 PM EDT from Last 3 Months or Most Recently Relevant to Health Maintenance Results * Due to [place] [employer] law, this organization might not be sharing sensitive test results. * Chlamydia and Gonorrhoea, Amplified (05/20/2015 1:34 PM EDT) URINE CHLAMYDIA AMP PROBE NEGATIVE [facility] Comment: No Chlamydia Trachomatis RNA detected in this patient's sample (REFERENCE RANGE/NORMAL VALUE: NOT DETECTED) URINE GC AMP PROBE NEGATIVE [facility] Comment: No Neisseria Gonorrhoeae RNA detected in this patient's sample (REFERENCE RANGE/NORMAL VALUE: NOT DETECTED) NOTE: This test uses materials management clerk-mediated amplification method to detect rRNA from [...] without risk of sexual abuse. Consult the [facility] if needed. Contact phone number . Therapeutic failure or success cannot be determined with the Aptima Combo2 assay since nucleic acid may persist following appropriate antimicrobial therapy. The Centers for Disease Control and Prevention (CDC) recommends confirmatory retesting using culture or a different nucleic acid amplification test when positive results occur, if indicated. Testing performed or reported by [facility], a Service of [facility], [address] [place] [address] Presley Hewitt MD, PhD, Sausage Stringer 05/20/2015 1:34 PM EDT Narrative [facility] - 05/20/2015 1:34 PM EDT URINE CHLAMYDIA GC AMP PROBE us Renetta Stanley MD LAB MICROBIOLOGY - GENERAL ORDER PATRICK Final Result [facility] [address] [place] [address], from Last 3 Months or Most Recently Relevant to Health Maintenance
--- OUTSIDE RECORDS SUMMARY | 2025-07-10 07:42 | XMS_ITS | Encounter Summary ---
Author Organization [facility] Address [address] [place] [address] Phone Care Team Providers Care Advertising Associate Name Role Phone Juan Young MD Primary Care Provider Thomas roberts Encounter Details Date Type Department Care Team (Late st Contact Info) Description 05/25/2017 Conversion Encounter [facility] - [address] [address] Social History Tobacco Use Types Packs/Day Years [...] on filedocumented in this encounter Care Teams Advertising Associate Relationship Specialty Start Date End Date Juan Young MD PCP - General 05/19/17 01/10/23 documented as of this encounter
--- OUTSIDE RECORDS SUMMARY | 2025-07-10 07:42 | XMS_ITS | Encounter Summary ---
Author Organization [facility] Address [address] [place] [phone] Phone Care Team Providers Care Dairy Farmworker Name Role Phone Juan Young MD Primary Care Provider Thomas roberts Encounter Details Date Type Department Care Team (Late st Contact Info) Description 10/28/2014 Documentation [facility] [place] Family Medicine [address] [place] [address] Family Medicine, Physician [address] [place] [address] Social History Tobacco Use Types Packs/Day Years [...] on filedocumented in this encounter Care Teams Dairy Farmworker Relationship Specialty Start Date End Date Juan Young MD PCP - General 05/19/17 01/10/23 documented as of this encounter
--- OUTSIDE RECORDS SUMMARY | 2025-07-10 07:42 | XMS_ITS | Encounter Summary ---
Author Organization [facility] Address [address] [place] [phone] Phone Care Team Providers Care Charging Crane Operator Name Role Phone Juan Young MD Primary Care Provider Thomas roberts Encounter Details Date Type Department Care Team (Late st Contact Info) Description 05/19/2015 Documentation [facility] [place] [address] [place] [address] Family Medicine, Physician [address] [place] [address] Social History Tobacco Use Types Packs/Day Years [...] on filedocumented in this encounter Care Teams Charging Crane Operator Relationship Specialty Start Date End Date Juan Young MD PCP - General 05/19/17 01/10/23 documented as of this encounter
--- OUTSIDE RECORDS SUMMARY | 2025-07-10 07:42 | XMS_ITS | Clinical Summary ---
Author Organization [facility] Address [address] [place], [place] [id number] Phone Care Team Providers Care Crew Supervisor Name Role Phone Varsha Gonzalez MD Primary [...] topic Medical Devices Not on file [place] [place] [address] BENEFITS ADMINISTRATORS [facility] [employer] [place] [employer] [facility] [employer] [place] [employer] [facility] [employer] [facility] [address] [place] [address] [place] [address] [employer] [employer] [facility] [place] [address] [place] [address] [place] [employer] [facility] [place] [address] [place] [address] INSURANCE Care Teams Crew Supervisor Relationship Specialty Start Date End Date Varsha Gonzalez MD [address] [place] [address] PCP - General Internal Medicine 01/18/23 Additional Source Comments The information contained in this document represents components of the legal health record. It is not the complete legal health record.[facility]
--- OUTSIDE RECORDS SUMMARY | 2025-07-10 07:42 | XMS_ITS | Encounter Summary ---
Author Organization [facility] Address [address] [place] [phone] Phone Care Team Providers Care Automation/Controls Manager Name Role Phone Juan Young MD Primary Care Provider Thomas roberts Encounter Details Date Type Department Care Team (Late st Contact Info) Description 11/03/2016 Documentation [facility] [place] [address] [place] [address] Family Medicine, Physician [address] [place] [address] Social History Tobacco Use Types Packs/Day Years [...] on filedocumented in this encounter Care Teams Automation/Controls Manager Relationship Specialty Start Date End Date Juan Young MD PCP - General 05/19/17 01/10/23 documented as of this encounter
[2025-07-10 11:23] LABS: Anion Gap 9 (12-20); Blood Urea Nitrogen 9 mg/dL (9-16); Calcium 9.1 mg/dL (8.4-10.2); Carbon Dioxide 28 mmol/L (22-29); Chloride 107 mmol/L (96-108); Estimated Glomerular Filt Rate > 60; Ferritin 72 ng/mL (10-122); Iron 108 mcg/dL (30-160); Percent Iron Saturation 41 % (15-50); Potassium 3.6 mmol/L (3.3-5.1); Sodium 140 mmol/L (135-145); Total Iron Binding Capacity 266 mcg/dL (228-428); Unsaturated Iron Binding 158 ug/dL
[2025-07-10 11:29] LABS: Folate 16.1 ng/mL (> or = 4.0); Vitamin B12 345 pg/mL (200-900)
== END 2025-07-10 07:40 | disposition home or self-care (01) ==
LOC: HO.HMGCLDS 07:39
PROVIDERS: PCP Nurse Practitioner Family; Visit Provider Nurse Practitioner Family
DX: R55 Syncope and collapse (principal); E55.9 Vitamin D deficiency, unspecified; R53.83 Other fatigue; Z13.0 Encounter for screening for diseases of the blood and blood-forming organs and certain disorders involving the immune mechanism
CPT/HCPCS: 36415; 80048; 82306; 82607; 82728; 82746; 83540; 84443